=== PATIENT | female | born 1940 ===

== ENCOUNTER 2025-02-07 21:27 | Inpatient (IN) | payer MEDICARE, BC, SELFPAY ==
[2025-02-07 21:34] VITALS: BP 177/71
[2025-02-07 21:36] VITALS: BP 178/75
[2025-02-07 21:38] VITALS: BMI 35.2
--- NOTE | 2025-02-07 21:49 | HPS.HSE ---
Family Physician
-
Family Physician: INTERVIEWE UNKNOWN - PT NOT
Chief Complaint
-
Chest pain, transfer from [facility] for revascularization
History of Present Illness
This is a 83-year-old female with past medical history of hypertension, hyperlipidemia, hyw-yylkqqd-imdxumlma diabetes, GERD, history of lumbar stenosis who presented to outside hospital on 6 2:17 days of repeated nonexertional left-sided chest pain.
Patient reported that she awoke around 02/04 as well as 02/05 with similar symptoms of nonexertional left-sided chest pain radiating to her axilla with associated nausea vomiting and diaphoresis lasting for about 45 minutes and then resolving. She
has not had any additional chest discomfort since then. She presented to the outside hospital and had nonischemic ECG, had slightly elevated troponin to 37, with 32 on repeat. D-dimer was negative. BNP was also negative. CBC was unremarkable and
electrolytes did show mild CECILE with a creatinine of 1.21. Chest x-ray was clear.
She was admitted for acute coronary syndrome. Monitored on telemetry without events. She ultimately had an echocardiogram which showed EF of 60% with grade 1 diastolic dysfunction and mildly dilated LA and no significant valvular disease. She
underwent coronary angiography yesterday which demonstrated significant proximal and mid junction and mid LAD lesion with IFR of 0.75 as well as significant ostial and proximal D1 lesion with a D2 that was atretic. There was significant OM1 lesion,
significant proximal and distal RCA lesions and moderate to severe PDA lesions and a normal LVEDP.
Given multivessel disease the patient was recommended to be evaluated for CABG at [facility]. Patient was accepted by Dr. Welch.
On my evaluation of the patient she denies having any current chest pain. Since she has been in the hospital she denies any exertional chest pain or exertional shortness of breath. She denies any prior history of CAD.
Most recent vitals prior to transfer were stable on her current medications.
Medical History
Past Medical History
Past Medical History: Reports GERD, HTN, Hypercholesterolemia, NIDDM and Other (ANDREIA not on supplemental oxygen or CPAP)
Past Surgical History: Reports Gynocological (Hysterectomy), Orthopedic (Left total knee arthroplasty, recent lumbar spinal surgery) and Other (Left breast cyst removal)
Social History
Tobacco: Non-smoker
Alcohol: None
Drug: None
Personal: Single
Living: With Family
Employment: Retired
Family History
Family History: Not pertinent
Allergies / Home Medications
Allergies reflects when Allergies were last updated in [facility].
Allergies to penicillin, sulfa
Home Medications with original date entered in [facility]
Allergy/Medication List:
Allergies: Penicillin, sulfa, sulfonamide antibiotics
Current medications
Allopurinol 200 mg tablets, 1 tablets oral daily
Aspirin 81 mg tablet, 81 mg tablet oral daily
Atorvastatin 40 mg tablet, 80 mg oral at bedtime
Carvedilol 0.125 mg tablet, 3.125 mg orally every 12 hours
Losartan 100 mg tablet, 100 mg p.o. daily
Nifedipine 60 mg extended release tablets, 60 mg p.o. at bedtime
Pregabalin 50 mg capsule, 50 mg p.o. daily semaglutide 1 mg / 0.75 mL pen injector, 1 mg subcutaneous every Tuesday
Review of Systems
-
Constitutional: Reports No Symptoms
EENT: Reports No Symptoms
Respiratory: Reports No Symptoms
Cardiac: Reports No Symptoms
Abdomen/GI: Reports No Symptoms
: Reports No Symptoms
Musculoskeletal: Reports No Symptoms
Skin: Reports No Symptoms
Neurological: Reports No Symptoms
Endocrine: Reports No Symptoms
Hematologic/Lymphatic: Reports No Symptoms
Psych: Reports No Symptoms
Physical Exam
Vital Signs
Vital Signs
Temp Pulse Resp BP Pulse Ox
98.4 F 69 18 177/71 97
02/07/25 21:36 02/07/25 21:34 02/07/25 21:36 02/07/25 21:34 02/07/25 21:36
Physical Exam
General: Well Developed, Well Nourished and No Apparent Distress
HEENT: NormoCephalic, Moist mucous membranes and Atraumatic
Respiratory: Clear
Cardiac: S1/S2 and Regular Rhythm; No Murmur or Rub
GI: Soft, Non Tender, Non Distended and Normal Bowel Sounds; No Organomegaly
Rectal: Deferred by Provider
Musculoskeletal: No Clubbing, No Cyanosis and No Edema
Skin: No Rash
Neuro: Nonfocal/grossly intact
Laboratory Results
-
Reviewed
Data Reviewed
-
Diagnostic Radiology: Report Reviewed by me
Medical Tests (Nuc Med, Echo, EKG etc): Report Reviewed by me
Lab Data: Labs Reviewed by me
Old Records: Reviewed
Impression/Plan
-
IMPRESSION:
84-year-old with past medical history significant for hypertension, hyperlipidemia, nqw-lvlerlp-znuejgxfi diabetes who presented to outside hospital with recurrent nonexertional chest pain found to have ACS with slight troponin bump and nonischemic
ECG. She is status post cath showing significant multivessel disease for which she did not get stented. She is being admitted from outside hospital to [place] for evaluation for CABG. She is currently hemodynamically stable and denies having
any pain.
PLAN:
Coronary disease -multivessel disease currently on medical management. She is pending evaluation by CT surgery for CABG
-Admitted to IVU
-Low-cholesterol/diabetic diet for now
-Will continue medical management with aspirin 81 mg, atorvastatin 80 mg at bedtime
-Coreg 3.125 mg twice daily,
-nitroglycerin as needed chest pain
-Cardiology consult
Bet-xzdasqn-xwywxvfys diabetes
-Insulin sliding scale for now
-Glipizide and metformin on hold
Hypertension
-Continue Coreg 3.125, titrate as BP tolerates
� Continue losartan 100 mg tablet
� Continue nifedipine 60 mg
� Patient's home triamterene�hydrochlorothiazide on hold due to recent CECILE
DVT prophylaxis�heparin subcu
CODE STATUS�full code
[2025-02-07 22:17] VITALS: BP 162/66
[2025-02-07 23:03] LABS: Glucose - Point of Care 99 mg/dl (70-99)
--- NOTE | 2025-02-07 23:14 | PTCARENOTE ---
Received patient from EMS transport. SR on the monitor, HR in the 70s. Alert and oriented. 97% on RA. Admission assessment completed. Oriented pt to room and unit. No complaints from pt at this time, call dey within reach.
[2025-02-07] MEDS: HEPARIN 5000 UNITS SC (23:23)
[2025-02-07 23:29] VITALS: BP 153/63
[2025-02-08] VITALS (8 sets, daily range): BP systolic 138–170; BP diastolic 51–76; BMI 34.7
--- NOTE | 2025-02-08 00:19 | CONSULT.CT ---
Consultation
-
Date/Time Consultation Requested: 02/07/25
Date/Time Consultation Performed: 02/07/25, 11:30 pm
Requesting Provider: Dr. Manriquez
Performing Provider: Eugenia Hill PA-C for Dr. Welch
Reason for Consultation: mv-cad
Patient History
Physicians
Family Physician: Dr. Vannessa Dickerson
Outpatient Powerhouse Mechanic: Dr Putnam (new pt)
Inpatient Powerhouse Mechanic: [facility] Cardiology
History of Present Illness
Ms Faith is a very pleasant 84 yo female with hx HTN, HLD, DM II, non-smoker, GERD, OA, polyneuropathy, lumbar stenosis with surgery last month who presented to [facility] on 02/05/25 with complaints of CP, nausea, vomiting, and diaphoresis. Pt woke up at
5:30 am on 02/04 with left-sided CP radiating to her axilla with associated nausea, vomiting, and diaphoresis. Her symptoms resolved on their own after approx. 45 minutes. She was able to go to her physical therapy session later that morning and
had no CP or HASKINS. The next morning 02/05, she again woke up with the same sxs of CP, nausea, vomiting x2, diaphoresis and present to [facility] ED. She denies having any exertional sxs of CP or SOB prior to these episodes. Her troponin was 37, then 32. Her
BNP was 62 and D-dimer was 0.38. Her Hg was 11.2, plat 406, BUN 24, Creatinine 1.21 (improved to 0.9 on 02/07), glucose 131, TSH 1.79. CXR revealed mild pulmonary vascular congestion with no gutierrez pulmonary edema, no evidence of pneumonia, but an
enlarged cardiac silhouette. Echo revealed EF 60% with grade 1 diastolic dysfunction, mildly dilated LA and no significant valvular disease. She underwent coronary angiography which demonstrated significant proximal and mid junction and mid LAD
lesion which were physiologically significant with IFR of 0.75, as well as, significant ostial and proximal D1 lesion with a D2 that was atretic. There was a significant OM1 lesion, significant proximal and distal RCA lesions and mod-severe PDA
lesions and a normal LVEDP. Pt was transferred to on 02/07/25 for evaluation for CABG.
Currently, she is comfortable, in no distress and denies having any CP since 02/05/25. She is on no drips.
Past Medical History
Past Medical History: GERD, HTN, Hypercholesterolemia and NIDDM
-Grave's disease at age 41, treated with PTU, then Synthroid briefly, no surgery, no further tx since
-Hernia
-Gout
-Polyneuropathy
-OA
Past Surgical History
-Lumbar stenosis with recent surgery, undergoing PT currently
-L breast cyst removed
-Total hysterectomy for fibroids/bleeding
-L TKR
Family History
Mother: N/A
Father: N/A
Social History
Alcohol: None
Drug: None
Tobacco: Non-Smoker
Personal: Single
Living: With Family (with daughter Venita Mendoza and son-in-law)
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
Allergies
Allergy/AdvReac Type Severity Reaction Status Date / Time
Penicillins Allergy Unknown Verified 02/07/25 22:11
Sulfa (Sulfonamide Allergy Unknown Verified 02/07/25 22:11
Antibiotics)
GI sxs of nausea, vomiting with Sulfa
Rash with PCN
Home Medications
�Medication �Instructions �Recorded �Confirmed �Type
allopurinol 300 mg tablet 300 mg PO DAILY 02/07/25 02/07/25 History
cholecalciferol (vitamin D3) 50 50 mcg PO DAILY 02/07/25 02/07/25 History
mcg (2,000 unit) tablet
glipizide 10 mg tablet 10 mg PO BID 02/07/25 02/07/25 History
ibuprofen 800 mg tablet 800 mg PO Q8H PRN pain 02/07/25 02/07/25 History
losartan 100 mg tablet (Cozaar) 100 mg PO DAILY 02/07/25 02/07/25 History
metoprolol succinate 50 mg 50 mg PO DAILY 02/07/25 02/07/25 History
tablet,extended release 24 hr
nifedipine 60 mg tablet,extended 60 mg PO 1XD 02/07/25 02/07/25 History
release 24 hr (Procardia XL)
pregabalin 50 mg capsule 50 mg PO DAILY 02/07/25 02/07/25 History
semaglutide 1 mg/dose (2 mg/1.5 1 mg SC QWEEK 02/07/25 02/07/25 History
mL) subcutaneous pen injector
Review of Systems
-
History Source: Patient and Transfer Record
General: Reports No Symptoms
HEENT: Reports No Symptoms
Respiratory: Reports No Symptoms
Cardiac: Reports Chest Pain, Nausea, Vomiting and Diaphoresis
Abdomen/GI: Reports Reflux and Constipation
: Reports No Symptoms
Musculoskeletal: Reports Joint Pain
Skin: Reports No Symptoms
Neurological: Reports No Symptoms
Vascular: Reports No Symptoms
Physical Exam
Vital Signs
Temp 97.8 F 02/07/25 23:29
Temp route: Oral 02/07/25 23:29
Pulse 69 02/07/25 21:34
Rhythm: Normal sinus rhythm 02/07/25 22:00
Resp Rate 18 02/07/25 23:29
Blood pressure 177/71 02/07/25 21:34
Blood pressure extremity used: Right upper arm 02/07/25 23:29
Position: Lying 02/07/25 23:29
MAP (cuff-Antoinette Monitor) 100 02/07/25 21:34
SaO2 97 02/07/25 23:29
Oxygen Mode of Delivery Room air 02/07/25 23:29
Actual Weight 205 lb 0.478 oz 02/07/25 21:38
Body Mass Index (BMI) 35.2 02/07/25 21:38
Exam
General: Well Developed, Well Nourished, No Apparent Distress and Comfortable
HEENT: Moist Mucous Membranes and PERRLA
Respiratory: Clear
Cardiac: S1/S2 (no murmur, rub or gallop)
GI: Soft, Non Tender, Non Distended and Normal Bowel Sounds
Skin: Warm and Dry
Neuro: Awake and AO x 3
Extremities: Other (no edema b/l. 1+ DPs b/l. Feeling of paresthesia in R foot from polyneuropathy. Has intact feeling in both feet)
Psych: Calm
Assessment / Plan
-
Impression:
-84 yo female with slightly elevated troponin 37/ ACS admitted to [facility] on 02/05/25
-cath 02/06/25 at [facility] with mv-CAD
LM: luminal irregularities entire vessel
LAD: prox and mid junction with 40% stenosis, 50% stenosis, and 70% stenosis. The mid showed 75% and distal 40% stenosis. IFR was 0.75
D1: ostial and prox showed 75% and 80% stenosis
D2: atretic vessel, ostial 70%, mid 80%
Circ: mid and distal 30%
OM1: prox 80% stensos
OM2: normal
RCA: prox 75% and 80% stenosis, mid 30% and 20% stenosis. The distal with 75% and 80% stenosis
PDA: Prox 30%, mid 60% and 70% stenosis
RPL: luminal irreg
-Echo 02/06/25 at [facility] with nl LV and RV fxn, LVEF 60%, grade 1 diastolic dysfunction, no significant valvular dz
-HTN/HLD
-DM II
-Lumbar stenosis with surgery last month
-GERD
-Remote hx of Graves dz at age 41, tx with PTU
-Gout
-Polyneuropathy
Plan:
-pt is currently comfortable and denies having any CP since 02/05/25. She is on ASA, Lipitor, Cozaar, Coreg, and Nifedipine
-unfortunately, there are no CDs of either Cath or Echo available in her transfer records
-will initiate pre-op studies
-will need to hold Cozaar and Nifefipine 2 days prior to CABG
-will review findings with the attending physician. Further recommendations will be after his evaluation
Data Reviewed
-
EKG: Report Reviewed by me
Automobile Service Station Mechanic: Report Reviewed by me
Echo: Report Reviewed by me
Radiology: Report Reviewed by me
Medical Tests (Nuc Med, etc): Report Reviewed by me
Labs: Labs Reviewed by me
Old Records: Reviewed
[2025-02-08 02:44] LABS: Hematocrit 30.9 % (37.0-47.0); Hemoglobin 10.3 g/dL (12.0-16.0); Mean Corp Hgb Conc. 33.3 g/dL (33.0-37.0); Mean Corpuscular Hgb 31.3 pg (27.0-31.0); Mean Corpuscular Volume 93.9 fL (81.0-99.0); Mean Platelet Volume 8.9 fL (7.4-10.4); Platelet Count 318 10^3/uL (130-400); Red Blood Cell Count 3.29 10^6/uL (4.20-5.40); White Blood Cell Count 7.6 10^3/uL (4.8-10.8)
[2025-02-08 02:55] LABS: INR 1.01; PT 13.6 Sec (11.4-14.6)
[2025-02-08 02:56] LABS: APTT 34.4 Sec (23.4-35.0)
[2025-02-08 03:09] LABS: ALT (SGPT) 13 U/L (0-35); AST (SGOT) 20 U/L (14-36); Albumin 3.9 g/dl (3.5-5.0); Alkaline Phosphatase 86 U/L (38-126); Blood Urea Nitrogen 15 mg/dl (7-17); Calcium 9.8 mg/dl (8.4-10.2); Carbon Dioxide 22 mmol/L (22-30); Chloride 110 mmol/L (98-107); Estimated Creatinine Clearance 52 ml/min; Glucose 99 mg/dl (70-99); HDL Cholesterol 43 mg/dl; LDL Cholesterol, Calculated 157 mg/dl; Potassium 4.2 mmol/L (3.5-5.1); Sodium 140 mmol/L (135-145); Total Bilirubin 0.8 mg/dl (0.2-1.3); Total Cholesterol 249 mg/dl (50-199); Total Protein 6.8 g/dl (6.3-8.2); Triglyceride 248 mg/dl (10-149); Very Low Density Lipoprotein 49 mg/dl (0-30); eGFR > 60.00
[2025-02-08 03:19] LABS: Troponin I 0.089 ng/ml
[2025-02-08 07:19] LABS: Glucose - Point of Care 100 mg/dl (70-99)
[2025-02-08] MEDS: LYRICA 50 MG PO (08:18)
[2025-02-08] MEDS: NOVOLOG FLEXPEN-LOW RESISTANCE SC ×2 (08:18→12:34)
[2025-02-08] MEDS: ZYLOPRIM 300 MG PO (08:19)
[2025-02-08] MEDS: COREG 3.125 MG PO ×2 (08:19→19:38)
[2025-02-08] MEDS: COZAAR 100 MG PO (08:19)
[2025-02-08] MEDS: LOW STRENGTH ASPIRIN 81 MG PO (08:19)
[2025-02-08] MEDS: HEPARIN 5000 UNITS SC (08:20)
[2025-02-08 09:05] LABS: Glycohemoglobin (HgbA1c) 5.5 % (4.0-5.6)
--- NOTE | 2025-02-08 09:18 | W.PN.UPDATE ---
Update Note
Progress Note Update
Patient will be started on heparin gtt after discussion with cardiology. Continue ongoing work up. Consent to be obtained. Tentative surgical date to be Thursday February 13, 2025.
[2025-02-08] MEDS: HEPARIN 25000 UNITS/250 ML IV (09:38)
--- NOTE | 2025-02-08 09:44 | CON.CAR ---
Addendum entered and electronically signed by Reuben Medel MD 02/08/25 15:19:
I saw and examined the patient.
The TRANSCRIBING MACHINE MECHANIC's note was reviewed and I agree with the note.
Comment: 84 yo female with HTN, HLD, NIDDM, GERD, OA and lumbar stenosis, who presented to [facility] 02/05/25 with chest pain, nausea, vomiting and diaphoresis. Her troponin was 37 and she underwent cardiac cath which showed multi-vessel CAD and
transferred here.
She is currently CP free and has no SOB. SHe is tentatively scheduled for Tuesday CABG.
Original Note:
Consultation
Consultation Request
Date/Time Consultation Requested: 02/07/25 10p
Date/Time Consultation Performed: 02/08/25 9:15a
Requesting Provider: Dr. Manriquez
Performing Provider: JIM Esposito for Dr. Medel
Reason for Consultation: CAD awaiting CABG
Medical History
-
Chief Complaint: chest pain
History of Present Illness:
Mrs. Faith is a n 84 yo female with HTN, HLD, NIDDM, GERD, OA and lumbar stenosis, who presented to [facility] 02/05/25 with chest pain, nausea, vomiting and diaphoresis. Her troponin was 37 and she underwent cardiac cath that showed significant proximal,
mid junction and mid LAD lesion which were physiologically significant with IFR of 0.75, also significant ostial and proximal D1 lesion with a D2 that was atretic. There was a significant OM1 lesion, significant proximal and distal RCA lesions and
mod-severe PDA lesions and a normal LVEDP. Therefore she was transferred to on 02/07/25 for evaluation for CABG. Her echo 02/05/25 revealed EF 60% with grade 1 diastolic dysfunction, mildly dilated LA and no significant valvular disease. She was
seen by CT surgery and is awaiting CABG. Currently she denies any cardiac symptoms.
Past Medical History
Past Medical History: Other (as above)
Past Surgical History: Gynecological (hysterectomy) and Orthopedic (left TKA, lumbar stenosis surgery last month)
Social History
Tobacco: Non-Smoker
Alcohol: None
Living: With Family
Employment: Retired
Family History
Family History: Reviewed & Not Pertinent
Allergies / Home Medications
Allergy/AdvReac Type Severity Reaction Status Date / Time
Penicillins Allergy Unknown Verified 02/07/25 22:11
Sulfa (Sulfonamide Allergy Unknown Verified 02/07/25 22:11
Antibiotics)
�Medication �Instructions �Recorded �Confirmed �Type
allopurinol 300 mg tablet 300 mg PO DAILY 02/07/25 02/07/25 History
cholecalciferol (vitamin D3) 50 50 mcg PO DAILY 02/07/25 02/07/25 History
mcg (2,000 unit) tablet
glipizide 10 mg tablet 10 mg PO BID 02/07/25 02/07/25 History
ibuprofen 800 mg tablet 800 mg PO Q8H PRN pain 02/07/25 02/07/25 History
losartan 100 mg tablet (Cozaar) 100 mg PO DAILY 02/07/25 02/07/25 History
metoprolol succinate 50 mg 50 mg PO DAILY 02/07/25 02/07/25 History
tablet,extended release 24 hr
nifedipine 60 mg tablet,extended 60 mg PO 1XD 02/07/25 02/07/25 History
release 24 hr (Procardia XL)
pregabalin 50 mg capsule 50 mg PO DAILY 02/07/25 02/07/25 History
semaglutide 1 mg/dose (2 mg/1.5 1 mg SC QWEEK 02/07/25 02/07/25 History
mL) subcutaneous pen injector
Review of Systems
-
History Source: Patient
All other systems: Negative unless noted
Physical Exam
Vital Signs
Temp Pulse Resp BP Pulse Ox
98 F 80 20 170/66 98
02/08/25 07:31 02/08/25 07:45 02/08/25 07:31 02/08/25 07:31 02/08/25 08:31
Lab Results
02/08/25 09:17
02/08/25 02:21
Troponin I 0.089 ng/ml H* 02/08/25 02:21
Physical Exam
General: Well Developed, Well Nourished and No Apparent Distress
HEENT: Normocephalic, Anicteric and Moist Mucous Membranes
Respiratory: Clear and Non Labored Respirations
Cardiac: S1/S2 and Regular Rhythm
Breast: Deferred by me
GI: Soft, Non Tender, Non Distended and Normal Bowel Sounds
Rectal: Deferred by Provider
Genito-urinary: No Costovertebral Tender
Musculoskeletal: No Clubbing, No Cyanosis and No Edema
Skin: Warm and Dry
Neuro: AO x 3
Psych: Calm
Impression / Plan
-
CAD - multivessel on cath and plan for CABG likely 02/13/25.
- CT surgery following.
- IV Heparin.
- denies any cardiac symptoms.
HTN - stable on meds but will hold ARB and CCB 2 days prior to CABG.
- monitor.
HLD - now on Lipitor 80mg daily for LDL 157.
- goal LDL < 55.
NIDDM - on meds, per hospitalist.
GERD - PPI.
Data Reviewed
-
EKG: Tracing Personally Visualized and interpreted (NSR 76 bpm)
CT Scan: Report Reviewed by me (chest: minimal dependent atelectasis in the lung bases. )
Medical Tests (Nuc Med, Echo etc): Report Reviewed by me (echo 02/05/25: EF 60% with grade 1 diastolic dysfunction, mildly dilated LA and no significant valvular disease.)
Labs: Labs Reviewed by me
Old Records: Reviewed
--- NOTE | 2025-02-08 10:13 | W.PN.HOSP.TC ---
Today's Communication/Plan
-
Pain control. Plan for CABG
Assessment / Plan
Assessment / Plan
Physical exam:
General: Acutely ill
HEENT: Normocephalic, Atraumatic and Moist Mucous Membranes
Respiratory: Clear to Auscultation; Negative Wheezes, Rales or Rhonchi
Cardiac: Regular Rhythm and S1/S2
GI: Soft, Nontender and Nondistended
Musculoskeletal: No Clubbing, No Cyanosis and No Edema
Neuro: Awake, Alert and Oriented, no neurological deficit
Psych: Calm
A/P:
Coronary disease -multivessel disease currently on medical management. She is pending evaluation by CT surgery for CABG
-Admitted to IVU
-Low-cholesterol/diabetic diet for now
-Will continue medical management with aspirin 81 mg, atorvastatin 80 mg at bedtime
-Coreg 3.125 mg twice daily,
-nitroglycerin as needed chest pain
-Cardiology consult
- Heparin drip
- Plan for CABG on 02/13
- Updated daughter at bedside today
Ocx-vrmsiyl-eoqlhyupt diabetes
-Insulin sliding scale for now
-Glipizide and metformin on hold
Hypertension
-Continue Coreg 3.125, titrate as BP tolerates
� Continue losartan 100 mg tablet
� Continue nifedipine 60 mg
� Patient's home triamterene�hydrochlorothiazide on hold due to recent CECILE
Acute on chronic back pain
Discussed different options for treatment patient decided on the one below
Start tramadol as needed
DVT prophylaxis�heparin subcu
CODE STATUS�full code
Time spent 50-minute
Anticipated Discharge: > 48 hours
Subjective/Interval History
-
Date of Service: February 08, 2025
Patient denies chest pain today. Patient does have back pain
Objective Data
-
Labs:
Laboratory Results
0602/08/25 02/08/25
02:21 09:17 15:40
WBC 7.6 Cancelled
Hgb 10.3 L Cancelled
Hct 30.9 L Cancelled
Plt Count 318 Cancelled
PT 13.6
INR 1.01
APTT 34.4 Cancelled Pending
Sodium 140
Potassium 4.2
Chloride 110 H
Carbon Dioxide 22
BUN 15
Creatinine 0.9
Glucose 99
Calcium 9.8
Total Bilirubin 0.8
AST 20
ALT 13
Alkaline Phosphatase 86
Vital Signs:
Vital Signs
Temp Pulse Resp BP Pulse Ox
98 F 80 20 170/66 98
02/08/25 07:31 02/08/25 07:45 02/08/25 07:31 02/08/25 07:31 02/08/25 08:31
I&O
02/07/25 02/08/25 02/09/25
06:59 06:59 06:59
Intake Total 250 / 250
Output Total
Balance 249 / 249
--- NOTE | 2025-02-08 11:37 | CM ---
Reviewed chart. Met with Mrs. Faith and her daughter to review discharge plans. She states prior to admission she resides with her daughter and son-in-law in a one story home with five steps to enter. She states prior to admission she was
independent with ambulation and adls. She states she does not have any DME in the home. She states she has a prescription plan. Her daughter states she will be home for the summer to assist in her care if needed. Will need to see her functional
level after surgery to see if she will have any skilled care needs. Medical work-up in progress. The discharge plan is to return home with her daughter when medically stable.
[2025-02-08 12:30] LABS: Glucose - Point of Care 133 mg/dl (70-99)
[2025-02-08] MEDS: ULTRAM 50 MG PO ×2 (12:35→22:11)
[2025-02-08] MEDS: SENOKOT 8.6 MG PO (12:36)
[2025-02-08] MEDS: MIRALAX 17 GRAMS PO (12:36)
[2025-02-08 17:14] LABS: Glucose - Point of Care 164 mg/dl (70-99)
[2025-02-08] MEDS: LIPITOR 80 MG PO (17:49)
[2025-02-08] MEDS: NOVOLOG FLEXPEN-LOW RESISTANCE 1 UNITS SC (18:27)
--- NOTE | 2025-02-08 19:13 | PTCARENOTE ---
Pt denied any chest discomfort but reported low back discomfort which resolved well with tramadol. Pt started on heparin infusion. Pt OOB independently in her room and up in chair. Pt very motivated to look after her health, practicing her IS.
Telemetry shows sinus rhythm.
[2025-02-08] MEDS: SENOKOT PO (19:39)
[2025-02-08 21:59] LABS: Glucose - Point of Care 137 mg/dl (70-99)
[2025-02-08] MEDS: PROCARDIA XL (EXTENDED RELEASE) 60 MG PO (22:11)
[2025-02-08 22:51] LABS: APTT 142.1 Sec (23.4-35.0)
--- NOTE | 2025-02-09 00:46 | PTCARENOTE ---
Pt. has no complaints of chest pain/discomfort. VSS, NSR on the monitor. Heparin gtt infusing at 800 unit/hr. Ambulates with assist x 1. Tramadol effective for chronic lower back pain. Pt. sleeping.
[2025-02-09 04:21] VITALS: BP 119/56
[2025-02-09] MEDS: LYRICA 50 MG PO (04:36)
[2025-02-09 05:18] LABS: Hematocrit 29.9 % (37.0-47.0); Mean Corp Hgb Conc. 33.4 g/dL (33.0-37.0); Mean Corpuscular Hgb 31.7 pg (27.0-31.0); Mean Corpuscular Volume 94.9 fL (81.0-99.0); Mean Platelet Volume 9.1 fL (7.4-10.4); Platelet Count 309 10^3/uL (130-400); Red Blood Cell Count 3.15 10^6/uL (4.20-5.40); Red Cell Dist. Width 12.6 % (11.5-14.5); White Blood Cell Count 9.8 10^3/uL (4.8-10.8)
[2025-02-09 05:26] LABS: INR 1.05
[2025-02-09 05:28] LABS: APTT 83.2 Sec (23.4-35.0)
[2025-02-09 05:44] LABS: ALT (SGPT) 14 U/L (0-35); AST (SGOT) 22 U/L (14-36); Albumin 3.7 g/dl (3.5-5.0); Alkaline Phosphatase 78 U/L (38-126); Blood Urea Nitrogen 18 mg/dl (7-17); Calcium 9.5 mg/dl (8.4-10.2); Carbon Dioxide 23 mmol/L (22-30); Chloride 107 mmol/L (98-107); Direct Bilirubin 0.3 mg/dl (0.0-0.4); Estimated Creatinine Clearance 52 ml/min; Glucose 130 mg/dl (70-99); Potassium 4.2 mmol/L (3.5-5.1); Sodium 136 mmol/L (135-145); Total Bilirubin 0.7 mg/dl (0.2-1.3); Total Protein 6.6 g/dl (6.3-8.2); eGFR > 60.00
[2025-02-09 07:39] VITALS: BP 125/70
[2025-02-09 07:44] VITALS: BMI 35.0
[2025-02-09 07:45] LABS: Glucose - Point of Care 148 mg/dl (70-99)
[2025-02-09] MEDS: NOVOLOG FLEXPEN-LOW RESISTANCE SC ×3 (07:59→18:22)
--- NOTE | 2025-02-09 08:05 | PTCARENOTE ---
Assumed care of pt from prev nsg shift; Pt AAOX3 w/no c/o CP or SOB. Pt does c/o 02/28 bilat low back pain R side> L. Pain is chronic for pt. Pt assisted w/repositioning for comfort & PRN pain administered as ordered. Pt's VSS w//HR in the 70's & BP
119/56 this AM. Pt is SR on telemetry monitoring. Pt w/IV Heparin infusing through patent IV line as ordered. Pt assisted to the BR & then OOB to for breakfast. Pt w/call dey within reach. Plan of care ongoing.
[2025-02-09] MEDS: MIRALAX 17 GRAMS PO (09:16)
[2025-02-09] MEDS: SENOKOT 8.6 MG PO ×2 (09:17→20:23)
[2025-02-09] MEDS: LOW STRENGTH ASPIRIN 81 MG PO (09:17)
[2025-02-09] MEDS: COREG 3.125 MG PO (09:17)
[2025-02-09] MEDS: ZYLOPRIM 300 MG PO (09:18)
[2025-02-09] MEDS: COZAAR 100 MG PO (09:18)
[2025-02-09] MEDS: ULTRAM 50 MG PO ×2 (09:26→19:59)
--- NOTE | 2025-02-09 10:05 | W.PN.HOSP.TC ---
Today's Communication/Plan
-
ACS protocol
Assessment / Plan
Assessment / Plan
Physical exam:
General: Acutely ill
HEENT: Normocephalic, Atraumatic and Moist Mucous Membranes
Respiratory: Clear to Auscultation; Negative Wheezes, Rales or Rhonchi
Cardiac: Regular Rhythm and S1/S2
GI: Soft, Nontender and Nondistended
Musculoskeletal: No Clubbing, No Cyanosis and No Edema
Neuro: Awake, Alert and Oriented, no neurological deficit
Psych: Calm
A/P:
Coronary disease -multivessel disease currently on medical management. She is pending evaluation by CT surgery for CABG
-Admitted to IVU
-Low-cholesterol/diabetic diet for now
-Will continue medical management with aspirin 81 mg, atorvastatin 80 mg at bedtime
-Coreg increased to 6.25 mg twice daily,
-nitroglycerin as needed chest pain
-Cardiology consult
- Heparin drip
- Plan for CABG on 02/13
- Updated daughter at bedside yesterday
Gsq-fuetfco-egfrckmab diabetes
-Insulin sliding scale for now
-Glipizide and metformin on hold
Hypertension
-Continue Coreg, titrate as BP tolerates
� Holding losartan 100 mg tablet
� Continue nifedipine 60 mg
� Patient's home triamterene�hydrochlorothiazide on hold due to recent CECILE
Acute on chronic back pain/peripheral neuropathy
Discussed different options for treatment patient decided on the one below
cont tramadol as needed
-on Lyrica
-added one time dose of baclofen
DVT prophylaxis�heparin subcu
CODE STATUS�full code
Time spent 35-minute
Anticipated Discharge: > 48 hours
Subjective/Interval History
-
Date of Service: February 09, 2025
Patient complained of muscle cramps in her legs and neuropathy. Back pain better. No chest pain or shortness of breath
Objective Data
-
Labs:
Laboratory Results
02/08/25 02/09/25 02/09/25
22:30 04:58 11:00
WBC 9.8
Hgb 10.0 L
Hct 29.9 L
Plt Count 309
PT 14.0
INR 1.05
APTT 142.1 H 83.2 H Pending
Sodium 136
Potassium 4.2
Chloride 107
Carbon Dioxide 23
BUN 18 H
Creatinine 0.9
Glucose 130 H
Calcium 9.5
Total Bilirubin 0.7
AST 22
ALT 14
Alkaline Phosphatase 78
Vital Signs:
Vital Signs
Temp Pulse Resp BP Pulse Ox
98.2 F 79 18 119/56 97
02/09/25 07:39 02/09/25 07:39 02/09/25 07:39 02/09/25 04:21 02/09/25 07:39
I&O
02/08/25 02/09/25 02/10/25
06:59 06:59 06:59
Intake Total 250 / 250 480 / 480
Output Total
Balance 249 / 249 480 / 480
[2025-02-09 11:06] VITALS: BP 146/66
--- NOTE | 2025-02-09 11:11 | W.PN.UPDATE ---
Update Note
Progress Note Update
STS RISK SCORE
Procedure Type:�Isolated CABG
Perioperative Outcome Estimate %
Operative Mortality 2.36%
Morbidity & Mortality 7.6%
Stroke 1.03%
Renal Failure 1.74%
Reoperation 1.76%
Prolonged Ventilation 4.11%
Deep Sternal Wound Infection 0.405%
Long Hospital Stay (>14 days) 5.83%
Short Hospital Stay (<6 days)* 27.7%
Clinical Summary
Planned Surgery: Isolated CABG, Urgent, First cardiovascular surgery
Demographics: 84 year old, female, 91.7kg, 163cm, BMI: 34.5 kg/m�
Lab Values: Creatinine: 0.9 mg/dL, Hematocrit: 30.9%, WBC Count: 7.6 10�/�L, Platelet Count: 072401 cells/�L
Substance Abuse: Never smoker
Risk Factors / Comorbidities: Diabetes Mellitus , Hypertension
Cardiac Status: NYHA Class III, Ejection Fraction = 60%
Coronary Artery Disease: 3 vessels diseased, Proximal LAD Stenosis >=70%, Non-ST Elevation IN, IN: 1 to 7 Days
[2025-02-09 12:16] LABS: APTT 40.7 Sec (23.4-35.0)
[2025-02-09] MEDS: HEPARIN 25000 UNITS/250 ML IV (12:53)
[2025-02-09] MEDS: LIORESAL 5 MG PO (12:54)
[2025-02-09 13:08] LABS: Glucose - Point of Care 131 mg/dl (70-99)
--- NOTE | 2025-02-09 13:45 | W.PN.CD ---
Today's Communication / Plan
-
Increase Coreg
CTS next week
Impression / Plan
-
CAD - multivessel on cath and plan for CABG likely 02/13/25.
- CT surgery following.
- IV Heparin.
- denies any cardiac symptoms.
HTN - stable on meds but will hold ARB and CCB 2 days prior to CABG.
- increased coreg to 6.25 mg bid
HLD - now on Lipitor 80mg daily for LDL 157.
- goal LDL < 55.
NIDDM - on meds, per hospitalist.
GERD - PPI.
Physical Exam
Vital Signs/Labs
Vital Signs
Temp Pulse Resp BP Pulse Ox
98.2 F 70 18 146/66 99
02/09/25 11:06 02/09/25 12:00 02/09/25 11:06 02/09/25 11:06 02/09/25 11:06
02/08/25 02/09/25 02/10/25
06:59 06:59 06:59
Actual Weight 202 lb 2.622 oz 203 lb 7.787 oz
02/09/25 04:58
02/09/25 04:58
PT 14.0 Sec (11.4-14.6) 02/09/25 04:58
INR 1.05 02/09/25 04:58
APTT 40.7 Sec (23.4-35.0) H 02/09/25 11:15
Triglycerides 248 mg/dl (10-149) H 02/08/25 02:21
LDL Cholesterol, Calc 157 mg/dl 02/08/25 02:21
VLDL Cholesterol, Calc 49 mg/dl (0-30) H 02/08/25 02:21
HDL Cholesterol 43 mg/dl 02/08/25 02:21
LAB Results
02/08/25
02:21
Troponin I 0.089 H*
Physical Exam
Constitutional: No acute distress and Comfortable
EENT: Anicteric
Cardiovascular: Rhythm & rate is regular and Pedal edema is absent
Respiratory: Respiratory effort normal and Lungs clear to auscul.
GI: Soft
Neuro/Psych: AO x 3
Data Reviewed
-
Date of Service: February 09, 2025
Medical Decision Making: Reviewed Test Results
EKG: Tracing Personally Visualized and interpreted (sr)
Labs: Labs Reviewed by me
[2025-02-09 15:20] VITALS: BP 123/56
[2025-02-09 17:41] LABS: Glucose - Point of Care 134 mg/dl (70-99)
[2025-02-09] MEDS: LIPITOR 80 MG PO (18:41)
[2025-02-09 20:03] VITALS: BP 142/67
[2025-02-09] MEDS: COREG 6.25 MG PO (20:23)
[2025-02-09 21:17] LABS: APTT 65.2 Sec (23.4-35.0)
[2025-02-09 22:09] LABS: Glucose - Point of Care 135 mg/dl (70-99)
[2025-02-09 22:33] VITALS: BP 150/80
[2025-02-09] MEDS: PROCARDIA XL (EXTENDED RELEASE) 60 MG PO (22:38)
[2025-02-09] MEDS: LYRICA 25 MG PO (23:02)
--- NOTE | 2025-02-10 01:09 | PTCARENOTE ---
Pt. has no complaints of chest pain/discomfort this shift but does complain of a lot of neuropathic discomfort in bilateral feet in addition to lower back pain. Restless, pain better with movement or when feet flat on the floor. Tramadol helped a
little but not enough; order for additional 25 mg Lyrica obtained and given with adequate relief obtained. K-pad also ordered and applied to lower back/legs per patient's request. Otherwise NSR on the monitor, heparin infusing as per order. Pt.
resting quietly.
[2025-02-10] MEDS: ULTRAM 50 MG PO ×3 (02:14→17:06)
[2025-02-10 02:18] VITALS: BP 140/88
[2025-02-10 02:26] VITALS: BMI 35.2
[2025-02-10 03:30] LABS: % Basophils 0.2 % (0-2); % Eosinophils 0.9 % (0-6); % Immature Granulocytes 0.3 % (0-0.5); % Lymphocytes 28.8 % (20.5-51.1); % Monocytes 13.7 % (1.7-9.3); % Neutrophils 56.1 % (42.2-75.2); Absolute Eosinophils 0.1 10^3/uL (0-0.7); Absolute Lymphocytes 2.6 10^3/uL (1.2-3.4); Absolute Monocytes 1.3 10^3/uL (0.1-0.6); Absolute Neutrophils 5.1 10^3/uL (1.4-6.5); Hematocrit 30.5 % (37.0-47.0); Hemoglobin 10.2 g/dL (12.0-16.0); Mean Corp Hgb Conc. 33.4 g/dL (33.0-37.0); Mean Corpuscular Hgb 31.8 pg (27.0-31.0); Nucleated Red Blood Cells % 0 %; Platelet Count 296 10^3/uL (130-400); Red Blood Cell Count 3.21 10^6/uL (4.20-5.40); Red Cell Dist. Width 12.9 % (11.5-14.5); White Blood Cell Count 9.1 10^3/uL (4.8-10.8)
[2025-02-10 03:53] LABS: APTT 89.1 Sec (23.4-35.0)
[2025-02-10 03:55] LABS: Blood Urea Nitrogen 22 mg/dl (7-17); Calcium 9.7 mg/dl (8.4-10.2); Carbon Dioxide 23 mmol/L (22-30); Chloride 105 mmol/L (98-107); Estimated Creatinine Clearance 43 ml/min; Glucose 140 mg/dl (70-99); Potassium 4.4 mmol/L (3.5-5.1); Sodium 135 mmol/L (135-145); eGFR 49.86
[2025-02-10 07:18] VITALS: BP 139/73
[2025-02-10 07:48] LABS: Glucose - Point of Care 144 mg/dl (70-99)
[2025-02-10] MEDS: ZYLOPRIM 300 MG PO (08:44)
[2025-02-10] MEDS: LOW STRENGTH ASPIRIN 81 MG PO (08:44)
[2025-02-10] MEDS: MIRALAX 17 GRAMS PO (08:45)
[2025-02-10] MEDS: SENOKOT 8.6 MG PO ×2 (08:45→19:46)
[2025-02-10] MEDS: COREG 6.25 MG PO ×2 (08:45→19:46)
[2025-02-10] MEDS: LYRICA 50 MG PO ×2 (08:48→09:36)
[2025-02-10] MEDS: NOVOLOG FLEXPEN-LOW RESISTANCE SC ×3 (09:08→18:04)
--- NOTE | 2025-02-10 09:55 | W.PN.HOSP.TC ---
Today's Communication/Plan
-
Plan for CABG
Assessment / Plan
Assessment / Plan
Physical exam:
General: Acutely ill
HEENT: Normocephalic, Atraumatic and Moist Mucous Membranes
Respiratory: Clear to Auscultation; Negative Wheezes, Rales or Rhonchi
Cardiac: Regular Rhythm and S1/S2
GI: Soft, Nontender and Nondistended
Musculoskeletal: No Clubbing, No Cyanosis and No Edema
Neuro: Awake, Alert and Oriented, no neurological deficit
Psych: Calm
A/P:
Coronary disease -multivessel coronary artery disease:
Transferred from [facility]
Continue IV heparin drip
On aspirin, beta-blockers, and statins
Appreciate cardiology and CT surgery eval
Discussed with family prior
Plan for CABG on 02/13
Peripheral neuropathy:
Continue pregabalin increased to 100 mg daily
At home she is on 50 mg daily-she has had increased in the past and sometimes has tolerated and sometimes not so we will see.
Continue tramadol as needed
Hypertension:
On carvedilol and nifedipine
Losartan on hold
Diabetes mellitus type 2:
Continue insulin sliding scale
Glipizide and metformin at home
Acute on chronic back pain:
Continue tramadol as needed
DVT prophylaxis�heparin drip
CODE STATUS�full code
Time spent 35-minutes
Anticipated Discharge: > 48 hours
Subjective/Interval History
-
Date of Service: February 10, 2025
Her main concern is leg pain from her neuropathy otherwise denies any chest pain or shortness of breath.
Objective Data
-
Labs:
Laboratory Results
02/10/25 02/10/25
03:05 09:33
WBC 9.1
Hgb 10.2 L
Hct 30.5 L
Plt Count 296
APTT 89.1 H Pending
Sodium 135
Potassium 4.4
Chloride 105
Carbon Dioxide 23
BUN 22 H
Creatinine 1.1 H
Glucose 140 H
Calcium 9.7
Vital Signs:
Vital Signs
Temp Pulse Resp BP Pulse Ox
98 F 74 20 140/88 98
02/10/25 07:18 02/10/25 02:18 02/10/25 07:18 02/10/25 02:18 02/10/25 07:18
I&O
02/09/25 02/10/25 02/11/25
06:59 06:59 06:59
Intake Total 480 / 480 960 / 960
Balance 480 / 480 960 / 960
[2025-02-10 11:21] VITALS: BP 128/58
[2025-02-10 12:46] LABS: Glucose - Point of Care 121 mg/dl (70-99)
[2025-02-10] MEDS: TYLENOL 650 MG PO ×2 (13:21→18:21)
--- NOTE | 2025-02-10 13:55 | W.PN.CD ---
Today's Communication / Plan
-
Heparin gtt
CTS likely Tuesday
Impression / Plan
-
CAD - multivessel on cath and plan for CABG likely 02/13/25.
- CT surgery following.
- IV Heparin.
- denies any cardiac symptoms.
HTN - stable on meds but will hold ARB and CCB 2 days prior to CABG.
- increased coreg to 6.25 mg bid
HLD - now on Lipitor 80mg daily for LDL 157.
- goal LDL < 55.
NIDDM - on meds, per hospitalist.
GERD - PPI.
Subjective: Feet are bothering her
Physical Exam
Vital Signs/Labs
Vital Signs
Temp Pulse Resp BP Pulse Ox
97.9 F 77 20 128/58 95
02/10/25 11:29 02/10/25 11:21 02/10/25 11:29 02/10/25 11:21 02/10/25 11:29
02/09/25 02/10/25 02/11/25
06:59 06:59 06:59
Actual Weight 204 lb 12.951 oz
02/10/25 03:05
02/10/25 03:05
PT 14.0 Sec (11.4-14.6) 02/09/25 04:58
INR 1.05 02/09/25 04:58
APTT 107.0 Sec (23.4-35.0) H 02/10/25 09:33
Triglycerides 248 mg/dl (10-149) H 02/08/25 02:21
LDL Cholesterol, Calc 157 mg/dl 02/08/25 02:21
VLDL Cholesterol, Calc 49 mg/dl (0-30) H 02/08/25 02:21
HDL Cholesterol 43 mg/dl 02/08/25 02:21
LAB Results
02/08/25
02:21
Troponin I 0.089 H*
Physical Exam
Constitutional: No acute distress and Comfortable
EENT: Anicteric
Cardiovascular: Rhythm & rate is regular
Respiratory: Respiratory effort normal
GI: Soft
Neuro/Psych: Alert and Oriented
Data Reviewed
-
Date of Service: February 10, 2025
EKG: Tracing Personally Visualized and interpreted (sr)
Labs: Labs Reviewed by me
[2025-02-10 15:12] VITALS: BP 113/63
--- NOTE | 2025-02-10 17:00 | PTCARENOTE ---
Pt received this am c/o of severe burning bilateral foot pain. Pt taking ultram and tylenol as ordered with partial but not complete relief. Pt encouraged to ambulate which she later walked in the hallway and stated that the walking helped the pain.
[2025-02-10] MEDS: LIPITOR 80 MG PO (17:06)
[2025-02-10 17:55] LABS: Glucose - Point of Care 136 mg/dl (70-99)
[2025-02-10 19:25] VITALS: BP 139/69
[2025-02-10] MEDS: MORPHINE SULFATE 0.5 MG IV ×2 (20:17→23:14)
[2025-02-10 21:59] VITALS: BP 139/59
[2025-02-10 22:03] LABS: Glucose - Point of Care 145 mg/dl (70-99)
[2025-02-11] VITALS (7 sets, daily range): BP systolic 111–147; BP diastolic 44–73; BMI 35.0
--- NOTE | 2025-02-11 01:05 | PTCARENOTE ---
Received pt @ change of shift. AAOx3. VSS, NSR on monitor. Heparin gtt running @ 1100 units/hr through right forearm. C/o pain in feet. Informed Jammie Hinkle NP-- order placed for morphine-- given-- see OCT. Discussed plan of care for evening. Pt
verbalizes understanding. Call dey within reach.
[2025-02-11] MEDS: MORPHINE SULFATE 0.5 MG IV ×3 (03:32→19:06)
[2025-02-11 03:53] LABS: APTT 35.6 Sec (23.4-35.0)
[2025-02-11 04:13] LABS: Blood Urea Nitrogen 22 mg/dl (7-17); Calcium 9.6 mg/dl (8.4-10.2); Carbon Dioxide 20 mmol/L (22-30); Chloride 109 mmol/L (98-107); Estimated Creatinine Clearance 47 ml/min; Glucose 140 mg/dl (70-99); Potassium 4.6 mmol/L (3.5-5.1); Sodium 136 mmol/L (135-145); Uric Acid 4.5 mg/dl (2.5-6.2)
[2025-02-11 05:33] LABS: % Basophils 0.3 % (0-2); % Eosinophils 1.2 % (0-6); % Immature Granulocytes 0.3 % (0-0.5); % Lymphocytes 34.3 % (20.5-51.1); % Monocytes 15.8 % (1.7-9.3); % Neutrophils 48.1 % (42.2-75.2); Absolute Eosinophils 0.1 10^3/uL (0-0.7); Absolute Lymphocytes 2.3 10^3/uL (1.2-3.4); Absolute Neutrophils 3.2 10^3/uL (1.4-6.5); Hematocrit 29.5 % (37.0-47.0); Hemoglobin 9.7 g/dL (12.0-16.0); Mean Corp Hgb Conc. 32.9 g/dL (33.0-37.0); Mean Corpuscular Hgb 31.2 pg (27.0-31.0); Mean Corpuscular Volume 94.9 fL (81.0-99.0); Mean Platelet Volume 9.6 fL (7.4-10.4); Nucleated Red Blood Cells % 0 %; Platelet Count 286 10^3/uL (130-400); Red Blood Cell Count 3.11 10^6/uL (4.20-5.40); White Blood Cell Count 6.6 10^3/uL (4.8-10.8)
[2025-02-11 07:36] LABS: Glucose - Point of Care 137 mg/dl (70-99)
[2025-02-11] MEDS: NOVOLOG FLEXPEN-LOW RESISTANCE SC ×3 (08:25→18:12)
[2025-02-11] MEDS: LYRICA 100 MG PO (08:25)
[2025-02-11] MEDS: COREG 6.25 MG PO (08:29)
[2025-02-11] MEDS: ZYLOPRIM 300 MG PO (08:29)
[2025-02-11] MEDS: MIRALAX 17 GRAMS PO (08:30)
[2025-02-11] MEDS: LOW STRENGTH ASPIRIN 81 MG PO (08:30)
[2025-02-11] MEDS: SENOKOT 8.6 MG PO ×2 (08:30→19:48)
--- NOTE | 2025-02-11 08:38 | W.PN.CD ---
Today's Communication / Plan
-
Heparin gtt
CABG Wed
Impression / Plan
-
CAD - multivessel on cath and plan for CABG likely 02/13/25.
- CT surgery following.
- IV Heparin.
- denies any cardiac symptoms.
HTN - stable on meds but will hold ARB and CCB 2 days prior to CABG.
- increased coreg to 12.5 mg bid
HLD - now on Lipitor 80mg daily for LDL 157.
- goal LDL < 55.
NIDDM - on meds, per hospitalist.
GERD - PPI.
Subjective: feelign better
Physical Exam
Vital Signs/Labs
Vital Signs
Temp Pulse Resp BP Pulse Ox
97.7 F 87 18 147/73 98
02/11/25 07:25 02/11/25 08:29 02/11/25 07:25 02/11/25 08:29 02/11/25 07:25
02/10/25 02/11/25 02/12/25
06:59 06:59 06:59
Actual Weight 204 lb 12.951 oz 203 lb 7.787 oz
02/11/25 04:36
02/11/25 03:26
PT 14.0 Sec (11.4-14.6) 02/09/25 04:58
INR 1.05 02/09/25 04:58
APTT 35.6 Sec (23.4-35.0) H 02/11/25 03:26
Triglycerides 248 mg/dl (10-149) H 02/08/25 02:21
LDL Cholesterol, Calc 157 mg/dl 02/08/25 02:21
VLDL Cholesterol, Calc 49 mg/dl (0-30) H 02/08/25 02:21
HDL Cholesterol 43 mg/dl 02/08/25 02:21
Physical Exam
Constitutional: No acute distress and Comfortable
EENT: Anicteric
Cardiovascular: Rhythm & rate is regular
Respiratory: Respiratory effort normal
GI: Soft
Neuro/Psych: AO x 3
Data Reviewed
-
Date of Service: February 11, 2025
EKG: Tracing Personally Visualized and interpreted (sr)
Echo: Ordered by me
Labs: Labs Reviewed by me
--- NOTE | 2025-02-11 10:02 | W.PN.HOSP.TC ---
Today's Communication/Plan
-
Check iron stores and heme test stools. Follow H&H.
Assessment / Plan
Assessment / Plan
A/P:
Coronary disease -multivessel coronary artery disease:
Transferred from [facility]
Continue IV heparin drip
On aspirin, beta-blockers, and statins
Appreciate cardiology and CT surgery eval
Plan for CABG on 02/13
Normocytic anemia
History of chronic anemia per patient
Check iron stores and heme test stools.
Peripheral neuropathy:
Continue pregabalin increased to 100 mg daily
At home she is on 50 mg daily-she has had increased in the past and sometimes has tolerated and sometimes not so we will see.
Continue tramadol as needed
Hypertension:
On carvedilol and nifedipine
Losartan on hold
Diabetes mellitus type 2:
Continue insulin sliding scale
Glipizide and metformin at home and she is on Ozempic weekly. Currently her glipizide and metformin are on hold the hospital and blood sugars are under goal.
Hemoglobin A1c 5.5. Follow Accu-Cheks and consider discontinuing glipizide or decreasing the dose of glipizide .
Acute on chronic back pain:
Continue tramadol as needed
DVT prophylaxis�heparin drip
CODE STATUS�full code
Anticipated Discharge: > 48 hours
Subjective/Interval History
-
Date of Service: February 11, 2025
Denies any shortness of breath or chest pain.
No nausea vomiting.
Her main symptom is worsening of her neuropathy pain here. She has neuropathy for the last 2 years and was on Lyrica 100 mg decreased to 50 mg because of side effects. On 50 mg she was doing great but his symptoms worsened in the hospital.
Morphine helps.
She apparently was told she was anemic by PCP during routine visits. No treatments recommended. She says she is was up-to-date with colonoscopy for her age. No prior history of GI bleed or peptic ulcer disease.
Objective Data
-
Labs:
Laboratory Results
02/11/25 02/11/25 02/11/25
03:26 04:36 10:00
WBC Cancelled 6.6
Hgb Cancelled 9.7 L
Hct Cancelled 29.5 L
Plt Count Cancelled 286
APTT 35.6 H Pending
Sodium 136
Potassium 4.6
Chloride 109 H
Carbon Dioxide 20 L
BUN 22 H
Creatinine 1.0
Glucose 140 H
Calcium 9.6
Vital Signs:
Vital Signs
Temp Pulse Resp BP Pulse Ox
97.7 F 87 18 147/73 98
02/11/25 07:25 02/11/25 08:29 02/11/25 07:25 02/11/25 08:29 02/11/25 07:25
I&O
02/10/25 02/11/25 02/12/25
06:59 06:59 06:59
Intake Total 960 / 960
Balance 960 / 960
Physical Exam
-
Respiratory: Clear to Auscultation and Non Labored Respirations; Negative Accessory Resp Muscle Use
Cardiac: Regular Rhythm and S1/S2
GI: Soft and Nontender
Psych: Calm; Negative Confused
Data Reviewed
-
Labs: Labs Reviewed by me
[2025-02-11 10:08] LABS: Reticulocyte Count 2.4 % (0.4-2.8)
[2025-02-11 10:37] LABS: APTT 117.2 Sec (23.4-35.0)
[2025-02-11 11:38] LABS: Glucose - Point of Care 237 mg/dl (70-99)
[2025-02-11 13:41] LABS: Glucose - Point of Care 144 mg/dl (70-99)
[2025-02-11] MEDS: HEPARIN 25000 UNITS/250 ML IV (14:53)
[2025-02-11 18:02] LABS: Glucose - Point of Care 122 mg/dl (70-99)
[2025-02-11] MEDS: LIPITOR 80 MG PO (18:12)
[2025-02-11 18:49] LABS: Iron 46 ug/dl (37-170)
[2025-02-11 18:58] LABS: Percent Saturation 16 % (20-50); Total Iron Binding Capacity 272 ug/dl (265-497)
--- NOTE | 2025-02-11 19:25 | PTCARENOTE ---
pt continues to be sr on the monitor, hr in the 70s, vss. pt offers no complaints at this time. pt educated on plan of care and pt verbalized understanding. heparin gtt running per protocol. pt ambulating in major and tolerating well. call dey
within reach.
[2025-02-11] MEDS: COREG 12.5 MG PO (19:48)
[2025-02-11 19:55] LABS: APTT 113.9 Sec (23.4-35.0)
[2025-02-11] MEDS: DULCOLAX 10 MG PO (19:55)
--- NOTE | 2025-02-11 21:48 | PTCARENOTE ---
Assumed care on pt at 1900, aaox3, denies chest pain or SOB, c/o chronic back and LE pain, prn morphine administered with some relief. SR on the monitor, HR 80's, bp stable. Heparin gtt infusing @ 1200 unit/hour. Call edy within reach, POc ongoing.
[2025-02-11 22:18] LABS: Glucose - Point of Care 169 mg/dl (70-99)
[2025-02-12] VITALS (7 sets, daily range): BP systolic 123–138; BP diastolic 41–113; BMI 34.8
[2025-02-12 03:54] LABS: Hematocrit 29.7 % (37.0-47.0); Hemoglobin 9.4 g/dL (12.0-16.0); Mean Corp Hgb Conc. 31.6 g/dL (33.0-37.0); Mean Corpuscular Hgb 30.2 pg (27.0-31.0); Mean Corpuscular Volume 95.5 fL (81.0-99.0); Mean Platelet Volume 9.1 fL (7.4-10.4); Platelet Count 290 10^3/uL (130-400); Red Blood Cell Count 3.11 10^6/uL (4.20-5.40); Red Cell Dist. Width 12.6 % (11.5-14.5); White Blood Cell Count 6.9 10^3/uL (4.8-10.8)
[2025-02-12 04:07] LABS: APTT 114.7 Sec (23.4-35.0)
[2025-02-12 07:29] LABS: Glucose - Point of Care 143 mg/dl (70-99)
[2025-02-12] MEDS: NOVOLOG FLEXPEN-LOW RESISTANCE SC ×2 (07:37→13:00)
--- NOTE | 2025-02-12 08:00 | PTCARENOTE ---
Assumed care of pt from prev nsg shift; Pt AAOX3 w/no c/o CP or SOB. Pt w/no c/o of her chronic back pain this AM. Pt reports 'much better control w/the Lyrica and IV morphine'. Pt's VSS w//HR in the 70's & BP 126/56 this AM. Pt is SR on telemetry
monitoring. Pt w/IV Heparin infusing through patent IV line as ordered. Pt assisted to the BR & then OOB to for breakfast. Pt w/call dey within reach. Plan of care ongoing.
--- NOTE | 2025-02-12 08:05 | W.PN.UPDATE ---
Update Note
Progress Note Update
CARDIAC SURGERY ATTENDING:
It has been my pleasure to meet with Mrs. Gala Faith on numerous occasions during this hospitalization. She is a very pleasant 84-year-old woman with multivessel CAD. She will benefit from surgical coronary revascularization. I anticipate EZIO
to LAD, GSV to D, potential GSV to OM1 (this is a small coronary target), and GSV to RPDA at bifurcation to PLB branches (this is a very diseased coronary target with significant calcifications). I will perform concurrent exclusion of her left
atrial appendage. I had a long conversation with Mrs. Faith. We discussed her coronary pathology, discussed the operative procedure in great detail, reviewed the periprocedural risks (including, but not limited to, , stroke, PA, arrhythmia,
PNA, CECILE/F, bleeding, and infection), discussed expected in-hospital postprocedural course, and reviewed the expected outpatient recovery. All questions were answered to the best of my abilities. The patient is agreeable to proceed with surgery.
I have scheduled her for surgery on 02/13/2025.
Thank you for the opportunity participate in the care of this kind patient.
Brent Welch MD
[phone]
[2025-02-12] MEDS: LOW STRENGTH ASPIRIN 81 MG PO (09:22)
[2025-02-12] MEDS: LYRICA 100 MG PO (09:22)
[2025-02-12] MEDS: SENOKOT 8.6 MG PO (09:22)
[2025-02-12] MEDS: MIRALAX 17 GRAMS PO (09:22)
[2025-02-12] MEDS: ZYLOPRIM 300 MG PO (09:23)
[2025-02-12] MEDS: COREG 12.5 MG PO ×2 (09:23→20:33)
--- NOTE | 2025-02-12 09:29 | W.PN.CD ---
Today's Communication / Plan
-
- CABG tomorrow.
- Continue IV Heparin gtt.
- Continue aspirin, high-dose atorvastatin, and carvedilol.
Impression / Plan
-
Multivessel CAD CAD - multivessel on cath.
- This is a threat to life.
- CABG tomorrow.
- Continue IV Heparin gtt.
- Continue aspirin, high-dose atorvastatin, and carvedilol.
HTN -
- Continue current dose of carvedilol.
HLD - Continue Lipitor 80mg daily (LDL is 157, but goal is< 55).
NIDDM - Management as per primary team.
GERD - PPI.
Subjective: No major events overnight. No cardiac complaints this a.m.
Physical Exam
Vital Signs/Labs
Vital Signs
Temp Pulse Resp BP Pulse Ox
98.1 F 79 18 126/56 97
02/12/25 07:22 02/12/25 07:22 02/12/25 07:22 02/12/25 07:21 02/12/25 07:22
02/11/25 02/12/25 02/13/25
06:59 06:59 06:59
Actual Weight 92.3 kg 91.9 kg
02/12/25 03:41
02/11/25 03:26
PT 14.0 Sec (11.4-14.6) 02/09/25 04:58
INR 1.05 02/09/25 04:58
APTT 114.7 Sec (23.4-35.0) H 02/12/25 03:41
Triglycerides 248 mg/dl (10-149) H 02/08/25 02:21
LDL Cholesterol, Calc 157 mg/dl 02/08/25 02:21
VLDL Cholesterol, Calc 49 mg/dl (0-30) H 02/08/25 02:21
HDL Cholesterol 43 mg/dl 02/08/25 02:21
Physical Exam
Constitutional: No acute distress and Comfortable
EENT: Anicteric and Moist mucous membranes
Cardiovascular: Rhythm & rate is regular, Pedal edema is absent, Systolic murmur absent and S1S2 is normal
Respiratory: Respiratory effort normal
GI: Soft and Non tender
Neuro/Psych: AO x 3
Other: Skin (Warm, dry, intact)
Data Reviewed
-
Date of Service: February 12, 2025
EKG: Tracing Personally Visualized and interpreted (Telemetry: Sinus rhythm)
Echo: Tracing Personally Visualized and interpreted (EF 60%; no significant valvular disease.)
Medical Tests (PFT, Pathology etc): Discussed with Patient
Labs: Labs Reviewed by me
[2025-02-12 10:53] LABS: APTT 62.6 Sec (23.4-35.0)
[2025-02-12] MEDS: HEPARIN 25000 UNITS/250 ML IV (12:14)
[2025-02-12 12:58] LABS: Glucose - Point of Care 158 mg/dl (70-99)
--- NOTE | 2025-02-12 13:46 | W.PN.HOSP.TC ---
Today's Communication/Plan
-
CABG tomorrow
Assessment / Plan
Assessment / Plan
A/P:
Coronary disease -multivessel coronary artery disease:
Transferred from [facility]
Continue IV heparin drip
On aspirin, beta-blockers, and statins
Appreciate cardiology and CT surgery eval
Plan for CABG on 02/13
Normocytic anemia
History of chronic anemia per patient
Iron studies suggest no deficiency. Heme test pending.
Peripheral neuropathy:
Continue pregabalin increased to 100 mg daily
At home she is on 50 mg daily-she has had increased in the past and sometimes has tolerated and sometimes not so we will see.
Continue tramadol as needed
Hypertension:
On carvedilol and nifedipine
Losartan on hold
Diabetes mellitus type 2:
Continue insulin sliding scale
Glipizide and metformin at home and she is on Ozempic weekly. Currently her glipizide and metformin are on hold the hospital and blood sugars are under goal.
Hemoglobin A1c 5.5. Follow Accu-Cheks and consider discontinuing glipizide or decreasing the dose of glipizide .
Acute on chronic back pain:
Continue tramadol as needed
DVT prophylaxis�heparin drip
CODE STATUS�full code
Anticipated Discharge: > 48 hours
Subjective/Interval History
-
Date of Service: February 12, 2025
No new symptoms. No chest pain. No shortness of breath currently.
No nausea vomiting
Objective Data
-
Labs:
Laboratory Results
02/12/25 02/12/25 02/12/25
03:41 10:33 18:15
WBC 6.9
Hgb 9.4 L
Hct 29.7 L
Plt Count 290
APTT 114.7 H 62.6 H Pending
Vital Signs:
Vital Signs
Temp Pulse Resp BP Pulse Ox
98.4 F 78 18 132/61 94
02/12/25 12:23 02/12/25 12:26 02/12/25 12:23 02/12/25 12:26 02/12/25 12:26
I&O
02/11/25 02/12/25 02/13/25
06:59 06:59 06:59
Intake Total 1090 / 1090
Balance 1090 / 1090
Physical Exam
-
Respiratory: Non Labored Respirations; Negative Accessory Resp Muscle Use
Cardiac: Regular Rhythm and S1/S2
Neuro: AO x 3
Data Reviewed
-
Labs: Labs Reviewed by me
--- NOTE | 2025-02-12 16:02 | CM ---
spoke to pt in room, we discussed pre-op CABG teaching including sternal and driving restrictions. she is prev indep, lives with her daughter and IAN in a ranch with 5 steps to enter. she has a cane she uses when she goes out and a rollator if
needed. we discussed rehabs and said [facility] . cm explained she would need to qualify and we will follow. she ahs the cardiac educ book. plan is for CABG in am. cm role explained and all questions answered
[2025-02-12 18:06] LABS: Glucose - Point of Care 175 mg/dl (70-99)
[2025-02-12] MEDS: LIPITOR 80 MG PO (18:44)
[2025-02-12] MEDS: NOVOLOG FLEXPEN-LOW RESISTANCE 1 UNITS SC (18:44)
[2025-02-12 18:54] LABS: APTT 91.1 Sec (23.4-35.0)
[2025-02-12] MEDS: SENOKOT PO (20:36)
--- NOTE | 2025-02-12 22:03 | PTCARENOTE ---
Pt aaox3, forgetful at times, denies any c/o pain or SOB, remains on heparin gtt, infusing at 1200unit/ hour. SR on the monitor, HR 70's .Scheduled for CABG tomorrow, prep completed, patient relations director CV PA notified. Family at bedside, all questions/concerns
answered. Call dey within reach.
[2025-02-12 22:23] LABS: Glucose - Point of Care 139 mg/dl (70-99)
[2025-02-13] VITALS (15 sets, daily range): BP systolic 87–147; BP diastolic 47–98; BMI 34.2
[2025-02-13 02:10] LABS: APTT 91.3 Sec (23.4-35.0)
--- NOTE | 2025-02-13 04:39 | PTCARENOTE ---
2nd prep with CHG shower and wipes completed. Family at bedside. call dey within reach.
[2025-02-13 05:30] LABS: Glucose - Point of Care 124 mg/dl (70-99)
--- NOTE | 2025-02-13 06:11 | W.CVOR.SURPR ---
CVOR Surgeon Immed Pre Op
-
I have examined this patient prior to performance of the scheduled procedure.
The patient's condition is unchanged from the time of the dictated/written History and
Physical and the patient is able to undergo the scheduled procedure.
[2025-02-13] MEDS: MAGNESIUM OXIDE 500 MG PO (06:19)
[2025-02-13] MEDS: PROTONIX 40 MG PO (06:19)
[2025-02-13] MEDS: LOPRESSOR 25 MG PO (06:19)
[2025-02-13] MEDS: BACTROBAN 2% OINTMENT 1 APPLIC NASAL ×2 (06:19→19:48)
[2025-02-13 07:38] LABS: ACT+ - POC 156 Seconds (82-134)
[2025-02-13 07:58] LABS: Urine Albumin Negative (Neg - Trace); Urine Bilirubin Negative (Negative); Urine Character Clear (Clear); Urine Color Yellow; Urine Glucose Negative (Negative); Urine Ketone Negative (Negative); Urine Leukocyte Negative (Negative); Urine Nitrite Negative (Negative); Urine Occult Blood Negative (Negative); Urine Urobilinogen Negative (Neg - 1+)
[2025-02-13 10:00] LABS: ACT+ - POC 496 Seconds (82-134)
[2025-02-13 10:27] LABS: B.E. - POC -0.2 mmol/L; Glucose - POC 118 mg/dl (70-99); HCO3 - POC 25 mmol/L (21-28); Hematocrit - POC 30 % PCV (37-47); Hemodilution- POC No; Hemoglobin Calculated - POC 10.2; Ionized Calcium - POC 1.35 mmol/L (1.15-1.33); Lactate - POC 0.69 mmol/L (0.36-0.75); O2 Saturation %Calculated-POC 99.3 % (94-98); PCO2 - POC 43 mmHg (35-48); PO2 - POC 151 mmHg (83-108); POC Comment PRE; Potassium - POC 3.8 mmol/L (3.5-5.1); Sodium - POC 140 mmol/L (136-145); Specimen Type - POC Arterial; pH - POC 7.37 (7.35-7.45)
[2025-02-13 10:35] LABS: ACT+ - POC 539 Seconds (82-134)
--- NOTE | 2025-02-13 10:56 | CM ---
Patient in OR today for CABG.
Reviewed initial assessment. Pt. resides with dtr. and IAN in a ranch style home w/ 5 MAYRA. Pt. is indep. w/ use of a SPC and rollator as needed. Anticipate that patient may require SNF placement @ [place]. Patient prefers [facility]. Will initiate
a referral.
Will follow closely.
[2025-02-13 11:19] LABS: ACT+ - POC 463 Seconds (82-134)
--- NOTE | 2025-02-13 11:21 | CM ---
pt in OR today, cm following
[2025-02-13 11:23] LABS: B.E. - POC 2.7 mmol/L; Glucose - POC 118 mg/dl (70-99); HCO3 - POC 26 mmol/L (21-28); Hematocrit - POC 22 % PCV (37-47); Hemodilution- POC Yes; Hemoglobin Calculated - POC 7.4; Ionized Calcium - POC 1.04 mmol/L (1.15-1.33); Lactate - POC < 0.30 mmol/L (0.36-0.75); PCO2 - POC 34 mmHg (35-48); PO2 - POC 469 mmHg (83-108); POC Comment CPB; Potassium - POC 4.7 mmol/L (3.5-5.1); Sodium - POC 139 mmol/L (136-145); Specimen Type - POC Arterial; pH - POC 7.49 (7.35-7.45)
[2025-02-13 11:34] LABS: B.E. - POC 5.4 mmol/L; Glucose - POC 157 mg/dl (70-99); HCO3 - POC 28 mmol/L (21-28); Hematocrit - POC 27 % PCV (37-47); Hemodilution- POC Yes; Hemoglobin Calculated - POC 9.1; Ionized Calcium - POC 1.05 mmol/L (1.15-1.33); Lactate - POC 0.82 mmol/L (0.36-0.75); PCO2 - POC 31 mmHg (35-48); PO2 - POC 452 mmHg (83-108); POC Comment CPB; Potassium - POC 4.5 mmol/L (3.5-5.1); Sodium - POC 142 mmol/L (136-145); Specimen Type - POC Arterial; pH - POC 7.56 (7.35-7.45)
[2025-02-13 11:43] LABS: ACT+ - POC 577 Seconds (82-134)
[2025-02-13 12:12] LABS: B.E. - POC 4.2 mmol/L; Glucose - POC 155 mg/dl (70-99); HCO3 - POC 27 mmol/L (21-28); Hematocrit - POC 27 % PCV (37-47); Hemodilution- POC Yes; Hemoglobin Calculated - POC 9.2; Ionized Calcium - POC 1.11 mmol/L (1.15-1.33); Lactate - POC 0.69 mmol/L (0.36-0.75); PCO2 - POC 32 mmHg (35-48); PO2 - POC 317 mmHg (83-108); POC Comment WARM; Potassium - POC 4.1 mmol/L (3.5-5.1); Sodium - POC 143 mmol/L (136-145); Specimen Type - POC Arterial; pH - POC 7.53 (7.35-7.45)
[2025-02-13 12:21] LABS: ACT+ - POC 603 Seconds (82-134)
[2025-02-13 12:56] LABS: B.E. - POC 2.8 mmol/L; Glucose - POC 117 mg/dl (70-99); HCO3 - POC 26 mmol/L (21-28); Hematocrit - POC 28 % PCV (37-47); Hemodilution- POC Yes; Hemoglobin Calculated - POC 9.6; Ionized Calcium - POC 1.14 mmol/L (1.15-1.33); Lactate - POC 1.89 mmol/L (0.36-0.75); PCO2 - POC 32 mmHg (35-48); PO2 - POC 369 mmHg (83-108); POC Comment WARM; Potassium - POC 3.8 mmol/L (3.5-5.1); Sodium - POC 144 mmol/L (136-145); Specimen Type - POC Arterial; pH - POC 7.51 (7.35-7.45)
[2025-02-13 12:58] LABS: ACT+ - POC 123 Seconds (82-134)
[2025-02-13 13:25] LABS: B.E. - POC 0.3 mmol/L; Glucose - POC 93 mg/dl (70-99); HCO3 - POC 24 mmol/L (21-28); Hematocrit - POC 29 % PCV (37-47); Hemodilution- POC Yes; Lactate - POC 2.73 mmol/L (0.36-0.75); O2 Saturation %Calculated-POC 99.9 % (94-98); PCO2 - POC 34 mmHg (35-48); PO2 - POC 259 mmHg (83-108); POC Comment POST; Potassium - POC 3.8 mmol/L (3.5-5.1); Sodium - POC 143 mmol/L (136-145); Specimen Type - POC Arterial; pH - POC 7.46 (7.35-7.45)
--- NOTE | 2025-02-13 13:31 | W.IMMPOSTOP ---
Addendum entered and electronically signed by Brent Welch MD 02/13/25 14:58:
[id number]
Original Note:
Surgical Immed Post Op Note
-
CARDIAC SURGERY OPERATIVE REPORT:
Preoperative Dx:
MVCAD
Postoperative Dx:
Same
Procedures;
1) Median sternotomy
2) Takedown of EZIO (narrow pedicle)
3) Endoscopic harvest/prep of B/L LE GSV
4) CABG x 4 (EZIO to LAD, GSV to D1, GSV to OM1, GSV to RPDA)
5) ELAA (45mm AtriClip)
Surgeon:
Brent Welch M.D.
Assistants:
Charito Canas P.A.-C.; endoscopic harvest/prep of B/L LE GSV; first aid director throughout
Domenic Burnett P.A.-C.; assisted in prep of GSV; first aid director during cannulation for CPB
Shruthi Griffiths P.A.-C.; skin closure
Perfusion:
Keyla Johnson.C.P.; XC: 93min; CPB: 137min
Anesthesia:
Yoav Gerardo M.D. and Frank FariasN.Cesar
Findings:
EZIO was a healthy conduit w/ brisk blood flow; but with small ELD 1.5mm; healthy canseco
GSV was healthy conduit w/ normal wall thickness; but with larger ELD 4.5-6.0mm
LAD was visible on the epicardial surface, healthy canseco at midpoint anastomosis; ELD 2.75mm
D1 took a shallow intramyocardial course under approximately 1.5mm; healthy canseco at midpoint anastomosis; ELD 3.25mm
OM1 was initially visible on the epicardial surface, but then took a very shallow intramyocardial course; anastomosis performed in intramyocardial segment; ELD 1.75mm, slightly thin canseco
RPDA was visible on the epicardial surface, extensive scattered calcifications throughout, anastomosis performed just past crux; ELD 2.50mm
Good flow in all grafts on postoperative TT U/S flow probe assessment
ANDRIA w/ 'chicken-wing' morphology w/ excellent visual placement of 45mm AtriClip - confirmed excluded w/ postoperative LADARIUS
Post-LADARIUS: Normal biventricular function, no RWMA, no valvular heart disease
Transfusions:
None
Complications:
None
Implants:
AtriClip 45mm; LOT [id number]
CT x 4 (B/L pleural, inferior mediastinal, superior mediastinal)
Sternal wires x 9
Condition:
80 sinus (0.8/0.5), 125/52, CVP 10; SpO2 100%
GTTS: levophed 3, precedex 0.5, insulin OFF
Stable/guarded to CVICU
CT to pleuravac @1324 - no significant drainage
--- NOTE | 2025-02-13 13:56 | CON.INTV ---
Consultation
Consultation Request
Date/Time Consultation Requested: 02/13/2025 - 1310
Date/Time Consultation Performed: 02/13/2025 - 3
Requesting Provider: Domenic Burnett PA-C
Performing Provider: Dr. Curry
Reason for Consultation: s//p CABG x4
Medical History
-
Chief Complaint: Chest pain
History of Present Illness:
84-year-old female with a past medical history of DM type II, hyperlipidemia, hypertension, GERD and lumbar stenosis who presented with chest pain to [facility] on 02/05/2025. Patient has slightly elevated troponin and was admitted for acute coronary
syndrome. Echo showed preserved LVEF at 60% with no significant valvular disease and mildly dilated left atrium. She underwent coronary angiography which shows significant multivessel CAD. Patient transferred here to [facility] for
further evaluation. CT surgery consulted and the patient was consented for CABG. She was continued on IV heparin on the IVU. Today, patient underwent CABG x 4 with left atrial appendage exclusion with a 45 mm AtriClip. Patient transferred to the
CVICU postoperatively, and Autoc[employer] service is now consulted for additional management/recommendations.
When I saw the patient, she was resting in bed in no acute distress. Currently intubated on SIMV at 16/500/40%/5, with PSV: 5. PIP 24 cmH2O, VTe 437 cc and breathing at 22 breaths/min. Current heart rate 89, BP via A-line: 95/58, BP via NIBP:
104/69, and SpO2: 100%. Currently on Levophed at 4 mcg/min and insulin drip at 2 units/hr. The patient's granddaughter, Sarah, and the patient's daughter, Venita, both present at bedside and all questions were answered.
PMHx: Hypertension, hyperlipidemia, DM type II, GERD, lumbar stenosis, obesity
PSHx: Hysterectomy, left TKA, lumbar spinal surgery, left breast cyst removal
Past Medical History
Past Medical History: Other (Above as per HPI)
Past Surgical History: Other (Above as per HPI)
Social History
Tobacco: Non-smoker
Alcohol: None
Drug: None
Personal: Single
Living: With Family
Employment: Retired
Family History
Family History: Reviewed & Not Pertinent
Allergies / Home Medications
Allergies
Allergy/AdvReac Type Severity Reaction Status Date / Time
Penicillins Allergy Unknown Verified 02/07/25 22:11
Sulfa (Sulfonamide Allergy Unknown Verified 02/07/25 22:11
Antibiotics)
Home Medications
�Medication �Instructions �Recorded �Confirmed �Last Taken �Type
allopurinol 300 mg tablet 300 mg PO DAILY 02/07/25 02/07/25 Unknown History
cholecalciferol (vitamin D3) 50 50 mcg PO DAILY 02/07/25 02/07/25 Unknown History
mcg (2,000 unit) tablet
glipizide 10 mg tablet 10 mg PO BID 02/07/25 02/07/25 Unknown History
ibuprofen 800 mg tablet 800 mg PO Q8H PRN pain 02/07/25 02/07/25 Unknown History
losartan 100 mg tablet (Cozaar) 100 mg PO DAILY 02/07/25 02/07/25 Unknown History
metoprolol succinate 50 mg 50 mg PO DAILY 02/07/25 02/07/25 Unknown History
tablet,extended release 24 hr
nifedipine 60 mg tablet,extended 60 mg PO 1XD 02/07/25 02/07/25 Unknown History
release 24 hr (Procardia XL)
pregabalin 50 mg capsule 50 mg PO DAILY 02/07/25 02/07/25 Unknown History
semaglutide 1 mg/dose (2 mg/1.5 1 mg SC QWEEK 02/07/25 02/07/25 02/03/25 History
mL) subcutaneous pen injector
Review of Systems
-
Unable to Obtain full review of systems at this time due to: Patient Intubation
Vitals / Labs / Diagnostic Testing
Vital Signs
Temp Pulse Resp BP Pulse Ox
99.2 F 93 16 99/73 100
02/13/25 19:00 02/13/25 19:00 02/13/25 19:00 02/13/25 18:00 02/13/25 19:00
Lab Data
02/13/25 17:27
02/13/25 13:59
Laboratory Results
02/13/25 02/13/25 02/13/25
01:16 13:59 18:06
PT 18.0 H
INR 1.44
APTT 91.3 H 35.1 H
pH 7.46 H 7.46 H
pCO2 31 L 32
pO2 120 H 172 H
HCO3 22.0 22.8
O2 Delivery Level Not Reportable Not Reportable
Diagnostic Testing:
Physical Exam
-
HEENT: Normocephalic, Anicteric and Other (ETT in place)
Cardiovascular: S1/S2 and Peripheral Edema (negative)
Respiratory: Wheeze (negative), Rales (negative), Rhonchi (negative), Non-Labored Respirations, Other (Mechanical breath sounds heard bilaterally) and Other (Mediastinal chest tubes x 2 + bilateral pleural chest tube)
GI: Soft, Distended (Abdominal obesity), Non Tender and Normal Bowel Sounds
Neurology: Tremors (negative) and Other (Sedated)
Skin: Warm and Dry
General: Respiratory Distress (negative), Comfortable, Fever (negative) and Chills (negative)
Assessment
-
Assessment: 84-year-old AAF with a past medical history of DM type II, hyperlipidemia, hypertension, GERD and lumbar stenosis who presented with chest pain to [facility] on 02/05/2025. Patient has slightly elevated troponin and was admitted for acute
coronary syndrome. Echo showed preserved LVEF at 60% with no significant valvular disease and mildly dilated left atrium. She underwent coronary angiography which shows significant multivessel CAD. Patient transferred here to [facility]
for further evaluation. CT surgery consulted and the patient was consented for CABG. She was continued on IV heparin on the IVU. On 02/13/2025, patient underwent CABG x 4 with left atrial appendage exclusion with a 45 mm AtriClip. Patient
transferred to the CVICU postoperatively, and Autoc[employer] service is now consulted for additional management/recommendations.
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
Impression:
#Multivessel CAD s/p CABG x 4 with left atrial appendage exclusion with 45 mm AtriClip (POD #0)
#DM type II c/b hyperglycemia (mild)
#Chronic anemia
#Obesity
#GERD
#Hypertension
#Hyperlipidemia
Plan:
Ventilator settings reviewed
FiO2 will be weaned to maintain SpO2 >90-94%
Minute ventilation will be adjusted
Arterial blood gases will be monitored
Spontaneous breathing trial will be attempted with hopeful extubation after anesthesia/sedation wear off
prn nebulized bronchodilators - not currently bronchospastic
Pulmonary artery catheter parameters will be followed
Pressors/antihypertensive/inotropes/diuretics will be provided as needed
Maintain MAP>65
Replete electrolytes with K>4, Mg>2
Monitor chest tube output (mediastinal chest tubes x 2 + bilateral pleural chest tubes)
Monitor hemoglobin
Monitor platelet count and coags
Transfuse blood products as needed to maintain Hb>7g/dL, plt>50k (given post-operative status)
CT surgery managing chest tubes
Monitor blood sugar to maintain euglycemia with goal BG 110-140
Insulin drip per protocol
Aspiration precautions
VAP prevention protocol
DVT prophylaxis
Early nutrition
Early mobilization
Continue CVICU level of care; Autocutter services will continue to follow along.
Critical care statement: A total of 42 minutes of critical care time was provided for this patient today. This includes management of ventilator, spontaneous breathing trial, arterial blood gases, pressors, of unstable vital signs, evaluation of the
patient at bedside, reviewing the patient's pertinent medical records including radiographs, microbiology, laboratory evaluations, and discussion with primary team and critical care nursing.
[2025-02-13 14:11] LABS: Glucose - Point of Care 127 mg/dl (70-99)
[2025-02-13 14:12] LABS: B.E. -1.2 mmol/L; Ionized Calcium 1.29 mMOL/L (1.15-1.33); O2 Saturation % 99.3 % (94-98); PCO2 31 mmHg (32-35); PO2 120 mmHg (83-108); Potassium 3.8 mMOL/L (3.5-5.1); Sodium 140 mMOL/L (136-145); pH 7.46 (7.35-7.45)
[2025-02-13 14:29] LABS: Blood Urea Nitrogen 19 mg/dl (7-17); Estimated Creatinine Clearance 52 ml/min; Glucose 130 mg/dl (70-99); Magnesium 2.6 mg/dl (1.6-2.3)
[2025-02-13 14:36] LABS: INR 1.44
[2025-02-13 14:37] LABS: APTT 35.1 Sec (23.4-35.0)
--- NOTE | 2025-02-13 14:41 | W.PN.CD ---
Addendum entered and electronically signed by Christian Eden MD 02/13/25 16:37:
84 yo female with multivessel CAD, HTN, hyperlipidemia is now s/p CABG today. She is weaning from vent and drips. Exam with RRR, no murmurs, trace edema. Tele: SR 80s. LADARIUS: EF 60%.
CAD/NSTEMI. Now s/p CABG today. Plan will be ASA/Plavix.
Trend BP as she recovers from OR.
Original Note:
Today's Communication / Plan
-
Close post-op monitoring and care with weaning of drips and vent as tolerated per CVICU/CT surgery protocol
Impression / Plan
-
Multivessel CAD:
-diagnosis is threat to life
-now s/p CABG x 4 (EZIO to LAD, GSV to D1, GSV to OM1, GSV to RPDA), ELAA (45mm AtriClip), Dr. Welch 02/13/25
-post-op EKG with IC RBBB and anterior ST/T abnormalities
-intubated/ventilated post-op
-now off Levophed, remains on insulin and Precedex drips, which require intensive monitoring
-CT's, Richards in place
-ASA, statin, BB
HTN:
-monitor post-op
HLD:
-high intensity statin
NIDDM:
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
-post-op on insulin gtt per protocol
GERD:
-PPI
Physical Exam
Vital Signs/Labs
Vital Signs
Temp Pulse Resp BP Pulse Ox
96.5 F L 92 16 118/67 100
02/13/25 14:09 02/13/25 14:00 02/13/25 14:00 02/13/25 06:19 02/13/25 14:09
02/12/25 02/13/25 02/14/25
06:59 06:59 06:59
Actual Weight 91.9 kg 90.2 kg
02/13/25 13:59
PT 18.0 Sec (11.4-14.6) H 02/13/25 13:59
INR 1.44 02/13/25 13:59
APTT 35.1 Sec (23.4-35.0) H 02/13/25 13:59
Magnesium 2.6 mg/dl (1.6-2.3) H 02/13/25 13:59
Triglycerides 248 mg/dl (10-149) H 02/08/25 02:21
LDL Cholesterol, Calc 157 mg/dl 02/08/25 02:21
VLDL Cholesterol, Calc 49 mg/dl (0-30) H 02/08/25 02:21
HDL Cholesterol 43 mg/dl 02/08/25 02:21
Physical Exam
Constitutional: No acute distress
Cardiovascular: Rhythm & rate is regular
Respiratory: Lungs clear to auscul. and Other (intubated/ventilated)
Neuro/Psych: Other (sedated)
Other: Skin (midsternal dressing CDI)
Data Reviewed
-
Date of Service: February 13, 2025
EKG: Tracing Personally Visualized and interpreted (as noted) and Other (tele SR)
X-Ray/CT/US/MRI/NUC/PET: Report Reviewed by me (CXR: postoperative changes of cardiothoracic surgery with expected positioning of support lines and tubes. No pneumothorax.)
Labs: Labs Reviewed by me
[2025-02-13] MEDS: ANCEF 10 IV ×2 (14:42)
[2025-02-13] MEDS: LYRICA PO (14:42)
[2025-02-13] MEDS: NSS 500 IV (14:43)
[2025-02-13] MEDS: TYLENOL PO (14:43)
[2025-02-13] MEDS: NOVOLOG FLEXPEN-LOW RESISTANCE SC ×2 (14:44)
[2025-02-13] MEDS: COREG PO (14:45)
[2025-02-13] MEDS: LOW STRENGTH ASPIRIN PO (14:45)
[2025-02-13] MEDS: ZYLOPRIM PO (14:46)
[2025-02-13] MEDS: MIRALAX PO (14:46)
[2025-02-13] MEDS: SENOKOT PO (14:46)
[2025-02-13 14:50] LABS: Hematocrit 29.9 % (37.0-47.0); Hemoglobin 10.4 g/dL (12.0-16.0); Platelet Count 175 10^3/uL (130-400)
[2025-02-13] MEDS: KCL 50 IV ×2 (14:52→15:59)
[2025-02-13 15:00] LABS: Glucose - Point of Care 121 mg/dl (70-99)
--- NOTE | 2025-02-13 15:00 | PTCARENOTE ---
Pt to CV ~1400. Pt intubated and sedated. Precedex infusing. Pt SR on the tele monitor. Heart tones audible. HR 80s. No pacing wires. BP 90-100s/60-70s. Levo turned off by anesthesia upon arrival to . CVP ~6. Palpable pulses throughout. Pt w/ ETT
#8, 22cm @ right lip. FiO2 40%. POX 100%. See worklist for full vent settings. Lung sounds audible anteriorly. Mediastinal Ctx2 to -20 suction, no airleak noted at this time, and output WNL. R/L pleural CT to -20 suction, no airleak noted at this
time, and output minimal. Abdomen round. Hypoactive BS. Richards catheter in place and draining yellow urine. Right IJ cordis w/ CVP transduced through cordis intact. Left radial a-line intact. All lines leveled, zeroed, and flushed. Sternal incision
w/ Aquacel intact. Surgical bra in place. B/L LE GSV sites intact and wrapped in KYAW wrap. EKG/Xray completed. Labs drawn and sent. See worklist for full nursing assessment and interventions.
[2025-02-13] MEDS: PACERONE PO (15:49)
[2025-02-13] MEDS: NEURONTIN PO (15:49)
[2025-02-13 16:08] LABS: Glucose - Point of Care 117 mg/dl (70-99)
[2025-02-13 16:57] LABS: Glucose - Point of Care 107 mg/dl (70-99)
[2025-02-13] MEDS: OFIRMEV 100 IV (17:20)
--- NOTE | 2025-02-13 17:46 | PTCARENOTE ---
Pt reassessed. Pt remains intubated. Precedex titrated off ~1550. Pt SR on the tele monitor. HR 80s. BP 90-100s/60s. Intermittent low dose levo. Pt currently on CPAP setting. POX 100%. See worklist for full vent settings. CTx4 assessment unchanged.
Richards catheter intact and draining yellow urine. CVP and a-line maintained. All lines leveled, zeroed, and flushed. All surgical sites stable. Bear mikie on patient. [facility] for pain - see MAR. Glycemic protocol followed. 4hr post op labs drawn and
sent. Family updated at the bedside. See worklist for full interventions.
[2025-02-13 17:54] LABS: Glucose - Point of Care 107 mg/dl (70-99)
[2025-02-13 17:57] LABS: Hematocrit 30.3 % (37.0-47.0); Hemoglobin 10.7 g/dL (12.0-16.0); Platelet Count 218 10^3/uL (130-400)
[2025-02-13 18:13] LABS: B.E. -0.5 mmol/L; HCO3 22.8 mmol/L (21-28); Ionized Calcium 1.32 mMOL/L (1.15-1.33); PCO2 32 mmHg (32-35); PO2 172 mmHg (83-108); Potassium 4.9 mMOL/L (3.5-5.1); Sodium 140 mMOL/L (136-145); pH 7.46 (7.35-7.45)
--- NOTE | 2025-02-13 19:02 | PTCARENOTE ---
Pt placed on CPAP by respiratory ~ 1730. ABG drawn and sent. CTPA at the bedside. Pt remains a little sleepy. Pt given about 30 more minutes on CPAP setting. Pt then more awake. Per CTPA good to extubate. Pt extubated to 6 L NC by respiratory. Pt
AAOx3. VSS. POX 100%. Call dey within reach.
[2025-02-13 19:09] LABS: Glucose - Point of Care 89 mg/dl (70-99)
[2025-02-13] MEDS: LR 250 ML IV ×3 (19:31→21:00)
[2025-02-13] MEDS: SENOKOT-S PO (19:47)
[2025-02-13] MEDS: ANCEF 5 IV (19:50)
[2025-02-13] MEDS: LOW STRENGTH ASPIRIN 81 MG PO (20:35)
[2025-02-13 20:43] LABS: Glucose - Point of Care 125 mg/dl (70-99)
--- NOTE | 2025-02-13 21:00 | PTCARENOTE ---
Report received from [facility]. Walking rounds done. Levo gtt at 8 mcg/min. Pt with labile BP at times. SBP 81-90's. CVP 3-4. LR 250 mls IV given at 1900. CVP increased to 5-7. SBP increased to 100's with volume. Pt with continued labile BP at
times. LR 250 mls x 2 given (at 2014 and 2099). Levo titrated briefly to 4 mcg/min. Increased to 6 mcg/min to maintain MAP > 65. Pt in SR, 90's. Rare PVC. For pulse and wound assessments see flowsheets. CTs x 4, all to -20 cm suction. Pt on 6L/NC
post extubation at 1845. Sats 100%. BBS present. Decreased B bases. CDB encouraged. Drowsy yet easily arouses to voice. Speech clear. Generalized weakness yet moves extremities x 4 equally. No facial asymmetry. Belly soft, obese, nontender.
Hypoactive bs x 4. Richards with clear, yellow urine. Hourly UO monitored. Hourly and prn CT outputs monitored. Glycemic protocol maintained. Ongoing plan of care. Eugenia RUSSELL at [facility] to see pt.
[2025-02-13] MEDS: LEVOPHED 250 IV (22:42)
[2025-02-13 23:02] LABS: B.E. -1.5 mmol/L; HCO3 23.7 mmol/L (21-28); Ionized Calcium 1.31 mMOL/L (1.15-1.33); PCO2 41 mmHg (32-35); PO2 202 mmHg (83-108); Potassium 4.2 mMOL/L (3.5-5.1); pH 7.37 (7.35-7.45)
[2025-02-13 23:06] LABS: Mixed Venous O2 Saturation 67.8 %
[2025-02-13] MEDS: TYLENOL 1000 MG PO (23:30)
[2025-02-13] MEDS: NEURONTIN 100 MG PO (23:31)
[2025-02-13] MEDS: PACERONE 200 MG PO (23:49)
[2025-02-14] VITALS (30 sets, daily range): BP systolic 70–137; BP diastolic 46–96; PULSE 90; O2SAT 94; BMI 35.2
[2025-02-14 00:07] LABS: Glucose - Point of Care 99 mg/dl (70-99)
[2025-02-14] MEDS: ALBUMIN 5% 250 IV (01:03)
[2025-02-14 01:28] LABS: Glucose - Point of Care 108 mg/dl (70-99)
[2025-02-14] MEDS: DILAUDID 0.25 MG IV ×2 (01:33→04:56)
--- NOTE | 2025-02-14 01:35 | PTCARENOTE ---
Urine output 20-35 mls/hr. Levo remains 4-6 mcg/min to keep MAP > 65. Albumin 5% 250 mls infused per order. Labs were sent at 2245. MVO2 67.8. PA with all labs. Pt more awake. C/O sternal CP 4/10. Dilaudid 0.25 mg IV given.
[2025-02-14 03:31] LABS: Glucose - Point of Care 94 mg/dl (70-99)
[2025-02-14 04:00] LABS: Hemoglobin 9.3 g/dL (12.0-16.0); Mean Corp Hgb Conc. 34.4 g/dL (33.0-37.0); Mean Corpuscular Hgb 31.4 pg (27.0-31.0); Mean Corpuscular Volume 91.2 fL (81.0-99.0); Mean Platelet Volume 9.4 fL (7.4-10.4); Platelet Count 206 10^3/uL (130-400); Red Blood Cell Count 2.96 10^6/uL (4.20-5.40); Red Cell Dist. Width 14.3 % (11.5-14.5); White Blood Cell Count 18.4 10^3/uL (4.8-10.8)
--- NOTE | 2025-02-14 04:18 | ECGCV ---
DREW Kaur notified of ECG critical value identified by electronic interpretation on ECG completed on 02/14/2025, at 0415.
[2025-02-14 04:22] LABS: Blood Urea Nitrogen 20 mg/dl (7-17); Calcium 9.3 mg/dl (8.4-10.2); Carbon Dioxide 24 mmol/L (22-30); Chloride 114 mmol/L (98-107); Estimated Creatinine Clearance 42 ml/min; Glucose 90 mg/dl (70-99); Magnesium 2.2 mg/dl (1.6-2.3); Potassium 4.1 mmol/L (3.5-5.1); Sodium 144 mmol/L (135-145); eGFR 49.86
[2025-02-14] MEDS: ANCEF 5 IV ×2 (04:37→12:13)
[2025-02-14] MEDS: ZOFRAN 4 MG IV ×2 (05:08→13:57)
[2025-02-14 05:18] LABS: Glucose - Point of Care 85 mg/dl (70-99)
--- NOTE | 2025-02-14 05:35 | PTCARENOTE ---
Labs drawn and sent. EKG done as per last note, seen by PA. CXR done. Dilaudid 0.25 mg IV given at 0456 for 6/10 sternal pain. Zofran 4 mg IV at 0508 for c/o nausea. Levo remains at 4 mcg/min to keep MAP > 65.
[2025-02-14] MEDS: TYLENOL 1000 MG PO ×3 (06:41→21:01)
--- NOTE | 2025-02-14 07:30 | PTCARENOTE ---
Report to [facility] Zarco this am. Walking rounds done. Bed weight done. Pt remains on Levo gtt at 4 mcg/min. Remains in SR. O2 sats on 4L are 100%. IS done with pt: 500-[address] Welch in to see pt this am.
[2025-02-14 07:31] LABS: Glucose - Point of Care 102 mg/dl (70-99)
--- NOTE | 2025-02-14 07:37 | W.PN.ANS.POP ---
Anesthesia Post Operative
- Anesthesia Post Op Note
Vital Signs Stable-See Nursing Note: Yes (Patient on norepinephrine- stable. )
Airway Patent: Yes
Adequate Pain Control: Yes
Change in Mental Status: No
Current Postoperative Nausea & Vomiting: No
Anesthesia Complications: No
General Anesthetic Recall: No
Unplanned Admission: No
Post Op Hydration Adequate: Yes
[2025-02-14] MEDS: ROXICODONE 5 MG PO ×2 (07:39→18:14)
--- NOTE | 2025-02-14 07:43 | W.PN.CT ---
Today's Communication / Plan
-
-pod #1
-no significant issues overnight
-mVO2 is 73.0. drips: insulin, Levo 4
-CT outputputs: 2 meds 170/290, 2 pleur 85/140 in 12/24 hrs
-got 750 LR and 250 Albumin
-wean off Levo as tolerated
-follow UO
-follow Hg
-held BB while on Levo
-current meds (ASA, Plavix, Lipitor, Amio, Protonix, Lyrica, Gabapentin)
-encourage IS, OOB
Assessment / Plan
-
- MVCAD- s/p CABG x 4 (EZIO to LAD, GSV to D1, GSV to OM1, GSV to RPDA); ELAA (45mm AtriClip) by Dr Welch on 02/13/25, pod#1
- Post-LADARIUS: Normal biventricular function, no RWMA, no valvular heart disease
- HTN/HLD
- Class 1 obesity, BMI 34
- GERD
- DM II
- DJD
- Lumbar stenosis
- Graves dz
- Polyneuropathy
- Gout
- L TKR
- Chronic anemia- Hg 9.4-10.3 preop
- Acute on chronic postop blood loss anemia
- Acute postop atelectasis
- Acute postop hypovolemia with subsequent hypervolemia
- Suspected acute postop pericarditis /+rub
Discussed patient care with: Nursing and Care Team
Subjective
-
Date of Service: February 14, 2025
Objective Data
-
PT 18.0 Sec (11.4-14.6) H 02/13/25 13:59
INR 1.44 02/13/25 13:59
APTT 35.1 Sec (23.4-35.0) H 02/13/25 13:59
Vital Signs
Vital Signs
Temp Pulse Resp BP Pulse Ox
98.6 F 100 19 104/62 100
02/14/25 01:00 02/14/25 01:10 02/14/25 01:10 02/14/25 01:00 02/14/25 01:05
CT Intake/Output/Weight
02/13/25 02/13/25 02/14/25
06:59 18:59 06:59
Intake Total 384 / 1444 155.6 / 1447.6 1292.0 / 1447.6
Output Total 1075 / 1480 405 / 1480
Balance 384 / 1444 -919.4 / -32.4 887.0 / -32.4
SaO2: 100
Physical Exam
-
General: Awake and AOx3
Cardiovascular: Regular rate & rhythm, No Murmurs and Rub
Respiratory: Decreased Breath Sounds
Sternum: Stable
Incision: Clean, Dry and Intact
Extremities: No Edema (1+ DPs b/l)
Abdomen: soft, nontender, nondistended, +decreased bowel sounds
Data Reviewed
-
Lab Results: Results Reviewed
Medications: Active Meds Reviewed
Chest X-Ray: Report Reviewed and Image Reviewed
ECG: Report Reviewed and Image Reviewed
--- NOTE | 2025-02-14 07:53 | PN.DE.MGMTRT ---
Insulin Management
- -
02/14/2025 Diabetes Management Consult
Patient transferred from [facility] 02/07 for revascularization s/p non exertional chest pain 02/04 & 02/05. PMH HTN, HLD, diabetes, GERD, MVCAD. Prior to admission was taking glipizide 10 mg BID Ozempic 1 mg weekly. A1C on admission 5.5%. Cr
1.1, eGFR 49.86 today.
POD 1 s/p CABG x 4. Patient is awake alert and oriented able to discuss diabetes care. States she has had diabetes ~ 10 years. Follows with primary care doctor for diabetes care. Has a working glucose monitor at home, usually only tests in AM.
Patient is currently on critical care glycemic protocol insulin infusion requiring .7 to 2 units of insulin per hour. Will continue insulin infusion today and assess for readiness to transition to home regimen with the possible addition of SGLT-2.
Will ask CM to find cost of Farxiga/Jardiance.
Discussed with nurse.
Will follow
Diabetes History
- -
Type of Diabetes: 2
Pre-Admission Diabetes Regimen
02/13/25 02/14/25
13:59 03:20
Creatinine 0.9 1.1 H
Lab Results
Hemoglobin A1c 5.5 % (4.0-5.6) 02/08/25 02:21
Insulin Pump Settings
IP Diabetes Regimen
02/13/25 02/13/25 02/13/25
13:59 14:00 14:59
Glucose 130 H
POC Glucose 127 H 121 H
02/13/25 02/13/25 02/13/25
16:07 16:56 17:53
Glucose
POC Glucose 117 H 107 H 107 H
02/13/25 02/13/25 02/13/25
19:07 20:41 22:33
Glucose
POC Glucose 89 125 H 99
02/14/25 02/14/25 02/14/25
01:27 03:20 03:30
Glucose 90
POC Glucose 108 H 94
02/14/25 02/14/25
05:17 07:30
Glucose
POC Glucose 85 102 H
Meal type: Dinner
Patient Education
--- NOTE | 2025-02-14 08:16 | W.PN.INTV ---
Today's Communication / Plan
Recommendations
Up OOB as tolerated
Maintain MAP >65, weaning down Levophed as tolerated
Goal BG 110�140, wean down insulin drip as per protocol
Encourage incentive spirometer
Continue CVICU level of care; Special Education Preschool Teacher services will continue to follow along
Assessment
-
Assessment: 84-year-old AAF with a past medical history of DM type II, hyperlipidemia, hypertension, GERD and lumbar stenosis who presented with chest pain to [facility] on 02/05/2025. Patient has slightly elevated troponin and was admitted for acute
coronary syndrome. Echo showed preserved LVEF at 60% with no significant valvular disease and mildly dilated left atrium. She underwent coronary angiography which shows significant multivessel CAD. Patient transferred here to [facility]
for further evaluation. CT surgery consulted and the patient was consented for CABG. She was continued on IV heparin on the IVU. On 02/13/2025, patient underwent CABG x 4 with left atrial appendage exclusion with a 45 mm AtriClip. Patient
transferred to the CVICU postoperatively, and Special Education Preschool Teacher service is now consulted for additional management/recommendations.
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
Impression:
#Multivessel CAD s/p CABG x 4 with left atrial appendage exclusion with 45 mm AtriClip (POD #1)
#DM type II c/b hyperglycemia (mild)
#Chronic anemia
#Obesity
#GERD
#Hypertension
#Hyperlipidemia
Plan:
To patient successfully extubated on 02/13/2025, and is now breathing comfortably on room air, saturating 93%
Maintain SpO2 >90-94%
prn nebulized bronchodilators - not currently bronchospastic
Encourage incentive spirometer use - q1hr while awake
Pressors/antihypertensive/inotropes/diuretics will be provided as needed
Maintain MAP>65
Replete electrolytes with K>4, Mg>2
Monitor chest tube output (mediastinal chest tubes x 2 + bilateral pleural chest tubes)
Monitor hemoglobin
Monitor platelet count and coags
Transfuse blood products as needed to maintain Hb>7g/dL, plt>50k (given post-operative status)
CT surgery managing chest tubes
Monitor blood sugar to maintain euglycemia with goal BG 110-140
Insulin drip per protocol
Aspiration precautions
DVT prophylaxis
Early nutrition
Early mobilization
Continue CVICU level of care; Special Education Preschool Teacher services will continue to follow along.
Critical care statement: A total of 38 minutes of critical care time was provided for this patient today. This includes management of ventilator, spontaneous breathing trial, arterial blood gases, pressors, of unstable vital signs, evaluation of the
patient at bedside, reviewing the patient's pertinent medical records including radiographs, microbiology, laboratory evaluations, and discussion with primary team and critical care nursing.
Subjective Dataa
Subjective Data
Date of Service:
Date of Service: February 14, 2025
Chief Complaint: Special Education Preschool Teacher Follow Up
Subjective:
Patient seen and evaluated today at bedside. Resting in bed in no acute distress. Heart rate 85, BP via A-line 111/46, currently on insulin drip at 0.7 units/h and Levophed at 4 mcg/min. Afebrile overnight.. Saturating 93% on room air. Denies
chest pain, BATISTA, nausea, fevers or chills
Review of Systems
General: Other (Negative unless mentioned above)
Objective Data
Data Reviewed
Vital Signs / I&O / Oxygen:
Vital Signs
Temp Pulse Resp BP Pulse Ox
98.7 F 89 22 84/57 95
02/14/25 09:00 02/14/25 09:05 02/14/25 09:05 02/14/25 09:00 02/14/25 09:00
Intake and Output
02/13/25 02/14/25 02/15/25
06:59 06:59 06:59
Intake Total 1444 / 1444 1626.6 / 1662.3 96.9 / 96.9
Output Total 1725 / 1770 115 / 115
Balance 1444 / 1444 -98.4 / -107.7 -18.1 / -18.1
SaO2 [CPAP/PSV] 100
SaO2 [SIMV] 100
SaO2 95
Nasal Cannula flow liters per 2
minute
Physical Exam
General: Respiratory Distress (negative), Comfortable, Chills (negative) and Sweats (negative)
HEENT: Normocephalic and Anicteric
Cardiovascular: S1-S2 and Peripheral Edema (negative)
Respiratory: Clear, Wheeze (negative), Crackles (negative), Rhonchi (negative), Non-Labored Respirations and Chest Tube (Bilateral pleural chest tubes + mediastinal x2)
GI: Soft, Non Distended, Non Tender and Normal Bowel Sounds
Neurology: Awake, Alert and Tremors (negative)
Skin: Warm, Dry, Cyanosis (negative) and Jaundice (negative)
Labs/Micro/Reports
Lab Data
02/14/25 03:20
02/14/25 03:20
Laboratory Results
02/13/25 02/13/25 02/13/25
13:59 18:06 22:46
PT 18.0 H
INR 1.44
APTT 35.1 H
pH 7.46 H 7.46 H 7.37
pCO2 31 L 32 41 H
pO2 120 H 172 H 202 H
HCO3 22.0 22.8 23.7
O2 Delivery Level Not Reportable Not Reportable
[2025-02-14 08:21] LABS: Glucose - Point of Care 124 mg/dl (70-99)
[2025-02-14] MEDS: PACERONE 200 MG PO ×2 (08:26→15:52)
[2025-02-14] MEDS: MAGNESIUM OXIDE 500 MG PO ×2 (08:26→21:01)
[2025-02-14] MEDS: LYRICA 100 MG PO (08:26)
[2025-02-14] MEDS: PROTONIX 40 MG PO (08:26)
[2025-02-14] MEDS: PLAVIX 75 MG PO (08:26)
[2025-02-14] MEDS: LOW STRENGTH ASPIRIN 81 MG PO (08:26)
[2025-02-14] MEDS: SENOKOT-S 1 TABLET PO ×2 (08:26→21:01)
[2025-02-14] MEDS: BACTROBAN 2% OINTMENT 1 APPLIC NASAL ×2 (08:28→21:02)
--- NOTE | 2025-02-14 08:30 | PTCARENOTE ---
Assumed care of patient at 0700. Pt is awake, alert, and oriented. Pt with complaints of pain, PRN Roxicodone administered for relief. Pt remains SR with HR 80's-90's. BP 112/50 MAP 69. CVP 11. Pulse oximetry 96% on 2L nasal cannula. Mediastinal
chest tubes x2 and left/right pleural chest tubes x [address], no sign of air leak or crepitus, drainage serosanguineous. Pt with intermittent complaints of nausea. Richards catheter remains in place with low urine output. Midsternal incision with
post-surgical dressing in place. Left and right leg incisions with KYAW wrap overlay in place. Right IJ cordis with SLIC intact. Remains on Levo and insulin gtt per glycemic protocol.
[2025-02-14 09:19] LABS: Glucose - Point of Care 111 mg/dl (70-99)
--- NOTE | 2025-02-14 09:41 | W.PN.CD ---
Today's Communication / Plan
-
Wean levo as able
Monitor tele
Routine post-op care
Impression / Plan
-
Multivessel CAD:
-diagnosis is threat to life
-now s/p CABG x 4 (EZIO to LAD, GSV to D1, GSV to OM1, GSV to RPDA), ELAA (45mm AtriClip), Dr. Welch 02/13/25
-post-op EKG with IC RBBB and anterior ST/T abnormalities
-extubated
- remains on levophed
-CT's, Richards in place
-ASA, statin, BB
HTN:
-monitor post-op
HLD:
-high intensity statin
NIDDM:
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
-post-op on insulin gtt per protocol
GERD:
-PPI
Physical Exam
Vital Signs/Labs
Vital Signs
Temp Pulse Resp BP Pulse Ox
98.7 F 89 22 84/57 95
02/14/25 09:00 02/14/25 09:05 02/14/25 09:05 02/14/25 09:00 02/14/25 09:00
02/13/25 02/14/25 02/15/25
06:59 06:59 06:59
Actual Weight 198 lb 13.711 oz 204 lb 12.951 oz
02/14/25 03:20
02/14/25 03:20
PT 18.0 Sec (11.4-14.6) H 02/13/25 13:59
INR 1.44 02/13/25 13:59
APTT 35.1 Sec (23.4-35.0) H 02/13/25 13:59
Magnesium 2.2 mg/dl (1.6-2.3) 02/14/25 03:20
Triglycerides 248 mg/dl (10-149) H 02/08/25 02:21
LDL Cholesterol, Calc 157 mg/dl 02/08/25 02:21
VLDL Cholesterol, Calc 49 mg/dl (0-30) H 02/08/25 02:21
HDL Cholesterol 43 mg/dl 02/08/25 02:21
Physical Exam
Constitutional: No acute distress
EENT: Anicteric
Cardiovascular: Rhythm & rate is regular
Respiratory: Respiratory effort normal
GI: Soft
Neuro/Psych: Alert and Oriented
Data Reviewed
-
Date of Service: February 14, 2025
Medical Decision Making: Reviewed Test Results
EKG: Tracing Personally Visualized and interpreted (sr)
Echo: Report Reviewed by me
Labs: Labs Reviewed by me
Critical Care Time (in minutes): 32
[2025-02-14 10:49] LABS: Glucose - Point of Care 103 mg/dl (70-99)
[2025-02-14] MEDS: ProAmatine 5 MG PO (12:13)
[2025-02-14] MEDS: NOVOLIN R INSULIN INFUSION 100 IV (12:14)
[2025-02-14 12:19] LABS: Glucose - Point of Care 104 mg/dl (70-99)
--- NOTE | 2025-02-14 12:28 | PTCARENOTE ---
Pt remains SR with HR 87. BP 105/45 MAP 62. CVP 11. Pulse oximetry 96% on room air. Chest tubes unchanged. Pt remains on Levo gtt at this time. Midodrine administered per order. Remains on insulin gtt per glycemic protocol.
[2025-02-14] MEDS: NSS IV (12:37)
[2025-02-14 13:40] LABS: Glucose - Point of Care 104 mg/dl (70-99)
[2025-02-14] MEDS: LR 250 ML IV (13:42)
[2025-02-14] MEDS: LEVOPHED 250 IV (15:52)
--- NOTE | 2025-02-14 16:00 | PTCARENOTE ---
Pt remains SR with HR 70's-80's. BP 114/42 MAP 62. CVP 8. Pulse oximetry 96% on room air. Received 250mL LR Bolus at 1400. Pt remains on Levo. Urine output remains low, CT MILLIE Ivania made aware.
[2025-02-14 16:06] LABS: Glucose - Point of Care 168 mg/dl (70-99)
[2025-02-14] MEDS: FLEXBUMIN 50 IV (16:21)
[2025-02-14 18:07] LABS: Glucose - Point of Care 123 mg/dl (70-99)
[2025-02-14 18:14] LABS: Ionized Calcium 1.25 mMOL/L (1.15-1.33)
[2025-02-14] MEDS: LIPITOR 80 MG PO (18:14)
[2025-02-14] MEDS: ProAmatine 10 MG PO (18:14)
[2025-02-14 18:30] LABS: Blood Urea Nitrogen 25 mg/dl (7-17); Calcium 9.2 mg/dl (8.4-10.2); Carbon Dioxide 24 mmol/L (22-30); Chloride 112 mmol/L (98-107); Estimated Creatinine Clearance 39 ml/min; Glucose 117 mg/dl (70-99); Sodium 142 mmol/L (135-145); eGFR 44.91
--- NOTE | 2025-02-14 20:00 | PTCARENOTE ---
Assumed care of patient at 1900. AOx3, kwasi, CARRERO. SR on CM, MAPs at goal at this time, CVP high 10's, radial pulses palpable, DP via Doppler, heart tones distant, RRR, no trace edema noted. Lungs dim 96% on RA; CTx4 to -20 cm wall suction, no
air leak, tidaling, or crepitus noted, sanguineous drainage in the chamber. Patient denies nausea at this time, stated she is 'hungry but no appetite,' abdomen obese, SNT, normoactive BS. Oliguric, bowden draining clear yellow urine. All surgical
sites CDI, surgical bra in place. RIJ Cordis with SLIC CDI, PIV x1. On Levo and insulin at this time. See nursing work list for additional intervention details.
[2025-02-14 20:16] LABS: Glucose - Point of Care 156 mg/dl (70-99)
[2025-02-14 22:01] LABS: Glucose - Point of Care 142 mg/dl (70-99)
[2025-02-14] MEDS: PITRESSIN 100 IV (22:05)
[2025-02-14] MEDS: PACERONE PO (22:27)
[2025-02-15] VITALS (57 sets, daily range): BP systolic 84–151; BP diastolic 48–77; PULSE 80–84; O2SAT 80–97; BMI 35.4
--- NOTE | 2025-02-15 | PTCARENOTE ---
Vaso added per CVPA for increasing Levo needs, patient's BP responded well. Vaso at 0.02 maintained, patient sleeping between care, CHG bath and bowden care provided, assessment of needs ongoing.
[2025-02-15 00:17] LABS: Glucose - Point of Care 111 mg/dl (70-99)
[2025-02-15 01:05] LABS: Glucose - Point of Care 95 mg/dl (70-99)
[2025-02-15 02:16] LABS: Glucose - Point of Care 88 mg/dl (70-99)
--- NOTE | 2025-02-15 04:00 | PTCARENOTE ---
No acute changes, Levo reduced per protocol, Vaso continues at 0.02, patient sleeping between care. Assessment of needs ongoing.
[2025-02-15 04:13] LABS: Hematocrit 22.5 % (37.0-47.0); Hemoglobin 7.6 g/dL (12.0-16.0); Mean Corp Hgb Conc. 33.8 g/dL (33.0-37.0); Mean Corpuscular Hgb 31.5 pg (27.0-31.0); Mean Corpuscular Volume 93.4 fL (81.0-99.0); Mean Platelet Volume 9.7 fL (7.4-10.4); Platelet Count 173 10^3/uL (130-400); Red Blood Cell Count 2.41 10^6/uL (4.20-5.40); Red Cell Dist. Width 14.3 % (11.5-14.5); White Blood Cell Count 19.4 10^3/uL (4.8-10.8)
[2025-02-15 04:40] LABS: Blood Urea Nitrogen 25 mg/dl (7-17); Calcium 9.1 mg/dl (8.4-10.2); Carbon Dioxide 25 mmol/L (22-30); Chloride 113 mmol/L (98-107); Estimated Creatinine Clearance 39 ml/min; Glucose 96 mg/dl (70-99); Magnesium 2.1 mg/dl (1.6-2.3); Potassium 3.9 mmol/L (3.5-5.1); Sodium 142 mmol/L (135-145); eGFR 44.91
[2025-02-15 06:00] LABS: Glucose - Point of Care 102 mg/dl (70-99)
[2025-02-15 06:00] LABS: Glucose - Point of Care 108 mg/dl (70-99)
[2025-02-15 06:07] LABS: Glucose - Point of Care 92 mg/dl (70-99)
[2025-02-15] MEDS: TYLENOL 1000 MG PO ×3 (06:10→22:12)
[2025-02-15] MEDS: ROXICODONE 5 MG PO ×4 (06:11→19:50)
--- NOTE | 2025-02-15 07:51 | W.PN.CT ---
Today's Communication / Plan
-
-pod #2
-no significant issues overnight
-drips: Levo 4, Vaso 0.02.
-CT outputs: 2 meds 75/185, 2 pleur 70/130 in 12/24 hrs
-Hg 7.6 today (from 9.3)- will give 1 pRBC followed by iv Lasix
-follow Cr - 1.2 today (1.2 on 02/14 and 1.0 preop)
-current meds (ASA, Plavix, Lipitor, Amio, Protonix, Lyrica, Gabapentin). Holding BB
-continue PT/OT
-encourage IS, OOB
Assessment / Plan
-
- MVCAD- s/p CABG x 4 (EZIO to LAD, GSV to D1, GSV to OM1, GSV to RPDA); ELAA (45mm AtriClip) by Dr Welch on 02/13/25, pod#2
- Post-LADARIUS: Normal biventricular function, no RWMA, no valvular heart disease
- HTN/HLD
- Class 1 obesity, BMI 34
- GERD
- DM II
- DJD
- Lumbar stenosis
- Graves dz
- Polyneuropathy
- Gout
- L TKR
- Chronic anemia- Hg 9.4-10.3 preop
- Acute on chronic postop blood loss anemia
- Acute postop atelectasis
- Acute postop hypovolemia with subsequent hypervolemia
- Suspected acute postop pericarditis /+rub
Discussed patient care with: Nursing and Care Team
Subjective
-
Date of Service: February 15, 2025
Objective Data
-
Lab Results
02/15/25 04:03
02/15/25 04:03
PT 18.0 Sec (11.4-14.6) H 02/13/25 13:59
INR 1.44 02/13/25 13:59
APTT 35.1 Sec (23.4-35.0) H 02/13/25 13:59
Vital Signs
Vital Signs
Temp Pulse Resp BP Pulse Ox
99.5 F 79 11 120/57 100
02/15/25 07:00 02/15/25 07:15 02/15/25 07:15 02/15/25 07:10 02/15/25 07:38
CT Intake/Output/Weight
02/14/25 02/15/25 02/15/25
18:59 06:59 18:59
Intake Total 676.3 / 1212.1 501.3 / 1212.1 34.5 / 34.5
Output Total 385 / 820 405 / 820 30 / 30
Balance 291.3 / 392.1 96.3 / 392.1 4.5 / 4.5
SaO2: 100
Physical Exam
-
General: Awake and AOx3
Cardiovascular: Regular rate & rhythm, No Murmurs and Rub
Respiratory: Decreased Breath Sounds
Sternum: Stable
Incision: Clean, Dry and Intact
Abdomen: soft, nontender, nondistended, +decreased bowel sounds
Extremities: No Edema (1+ DPs b/l)
Data Reviewed
-
Lab Results: Results Reviewed
Medications: Active Meds Reviewed
Chest X-Ray: Report Reviewed and Image Reviewed
ECG: Report Reviewed and Image Reviewed
--- NOTE | 2025-02-15 07:51 | PN.DE.MGMTRT ---
Insulin Management
- -
: Diabetes Management Followup
Patient transferred from [facility] 02/07 for revascularization s/p non exertional chest pain 02/04 & 02/05. PMH HTN, HLD, diabetes, GERD, MVCAD. Prior to admission was taking glipizide 10 mg BID Ozempic 1 mg weekly. A1C on admission 5.5%. Cr
1.1, eGFR 49.86 today.
States she has had diabetes ~ 10 years. Follows with primary care doctor for diabetes care. Has a working glucose monitor at home, usually only tests in AM
Patient is awake alert and oriented, sitting up in chair, offers no complaints, able to discuss diabetes care. POD #2 s/p CABG x 4. Doing well.
Remains on critical care glycemic protocol insulin infusion, glucose range 88 to 115, requiring 0.4 to 2.3 units of insulin per hour.
Will transition off drip today to home regimen and Farxiga 10mg daily, 1st dose now. Per CM cost of Farxiga/Jardiance is $0 co-pay.
Give NPH 15 units then turn drip off 1 hr after administering SQ insulin. Start low dose glipizide 5mg BID (was taking 10mg BID RANGE RIDER)
Discussed with nurse. Will cont to follow
Diabetes History
- -
Type of Diabetes: 2
Pre-Admission Diabetes Regimen
02/14/25 02/15/25
18:06 04:03
Creatinine 1.2 H 1.2 H
Lab Results
Hemoglobin A1c 5.5 % (4.0-5.6) 02/08/25 02:21
Insulin Pump Settings
IP Diabetes Regimen
02/14/25 02/14/25 02/14/25
08:20 09:13 10:47
Glucose
POC Glucose 124 H 111 H 103 H
02/14/25 02/14/25 02/14/25
12:18 13:34 15:59
Glucose
POC Glucose 104 H 104 H 168 H
02/14/25 02/14/25 02/14/25
18:05 18:06 20:16
Glucose 117 H
POC Glucose 123 H 156 H
02/14/25 02/15/25 02/15/25
22:00 00:16 01:04
Glucose
POC Glucose 142 H 111 H 95
02/15/25 02/15/25 02/15/25
02:16 03:05 04:03
Glucose 96
POC Glucose 88 108 H 102 H
02/15/25
06:02
Glucose
POC Glucose 92
Meal type: Breakfast
Patient Education
--- NOTE | 2025-02-15 08:00 | PTCARENOTE ---
Patient received from supervisor finishing department resting in bed, sleepy but arousable and appropriate, LYTTON, states pain controlled at this time. NSR via cm, SaO2 @ 97% on 2lnc. RIJ Cordis/SLIC w/CVP, L radial arterial lines present - leveled, flushed, and
calibrated w/good waveforms returned. Mediastinal chest tubes x 2 to one pleurevac, L and R pleural chest tubes to separate collection chamber, both placed to -20cm suction w/no air leaks noted. All procedural sites stable. Patient and granddaughter
at bedside, both updated to plan of care for the day, in agreement. See work list for full assessment, interventions performed, and intravenous infusion rates and titrations.
[2025-02-15 08:02] LABS: Glucose - Point of Care 115 mg/dl (70-99)
--- NOTE | 2025-02-15 08:20 | W.PN.INTV ---
Today's Communication / Plan
Recommendations
Up OOB as tolerated
Maintain MAP >65
Goal BG 110�140, wean down insulin drip as per protocol
Encourage incentive spirometer
Patient planned to have insulin drip stopped later today. Once insulin drip has been stopped and patient downgraded to CVICU telemetry status, then we will sign off at that time.
Assessment
-
Assessment: 84-year-old AAF with a past medical history of DM type II, hyperlipidemia, hypertension, GERD and lumbar stenosis who presented with chest pain to [facility] on 02/05/2025. Patient has slightly elevated troponin and was admitted for acute
coronary syndrome. Echo showed preserved LVEF at 60% with no significant valvular disease and mildly dilated left atrium. She underwent coronary angiography which shows significant multivessel CAD. Patient transferred here to [facility]
for further evaluation. CT surgery consulted and the patient was consented for CABG. She was continued on IV heparin on the IVU. On 02/13/2025, patient underwent CABG x 4 with left atrial appendage exclusion with a 45 mm AtriClip. Patient
transferred to the CVICU postoperatively, and Circulator service is now consulted for additional management/recommendations.
Chronic conditions ALLIANCE MANAGER: Hypertension, hyperlipidemia, DM type II, GERD, lumbar stenosis, obesity
Impression:
#Multivessel CAD s/p CABG x 4 with left atrial appendage exclusion with 45 mm AtriClip (POD #2)
#DM type II c/b hyperglycemia (mild)
#Chronic anemia
#Obesity
#GERD
#Hypertension
#Hyperlipidemia
Plan:
Patient successfully extubated on 02/13/2025, and is now breathing comfortably on room air, saturating 97-98%
Maintain SpO2 >90-94%
prn nebulized bronchodilators - not currently bronchospastic
Encourage incentive spirometer use - q1hr while awake
Pressors/antihypertensive/inotropes/diuretics will be provided as needed
Maintain MAP>65
Replete electrolytes with K>4, Mg>2
Monitor chest tube output (mediastinal chest tubes x 2 + bilateral pleural chest tubes)
Monitor hemoglobin
Monitor platelet count and coags
Transfuse blood products as needed to maintain Hb>7g/dL, plt>50k (given post-operative status)
CT surgery managing chest tubes
Monitor blood sugar to maintain euglycemia with goal BG 110-140
Insulin drip being weaned off
Aspiration precautions
DVT prophylaxis
Early nutrition
Early mobilization
Patient planned to have insulin drip stopped later today. Once insulin drip has been stopped and patient downgraded to CVICU telemetry status, then we will sign off at that time.
Critical care statement: A total of 41 minutes of critical care time was provided for this patient today. This includes management of ventilator, spontaneous breathing trial, arterial blood gases, pressors, of unstable vital signs, evaluation of the
patient at bedside, reviewing the patient's pertinent medical records including radiographs, microbiology, laboratory evaluations, and discussion with primary team and critical care nursing.
Subjective Dataa
Subjective Data
Date of Service:
Date of Service: February 15, 2025
Chief Complaint: Circulator Follow Up
Subjective:
Patient seen and evaluated today at bedside. Resting in bed no acute distress. On room air breathing comfortably. BP 117/63 and heart rate 87.
Review of Systems
General: Other (Negative unless mentioned above)
Objective Data
Data Reviewed
Vital Signs / I&O / Oxygen:
Vital Signs
Temp Pulse Resp BP Pulse Ox
99.3 F 80 17 127/59 100
02/15/25 08:00 02/15/25 08:00 02/15/25 08:00 02/15/25 08:00 02/15/25 08:00
Intake and Output
02/14/25 02/15/25 02/16/25
06:59 06:59 06:59
Intake Total 1626.6 / 1662.3 1177.6 / 1212.1 70.3 / 70.3
Output Total 1725 / 1770 790 / 820 80 / 80
Balance -98.4 / -107.7 387.6 / 392.1 -9.7 / -9.7
SaO2 [CPAP/PSV] 100
SaO2 [SIMV] 100
SaO2 100
Nasal Cannula flow liters per 2
minute
Physical Exam
General: Respiratory Distress (negative), Comfortable, Chills (negative) and Sweats (negative)
HEENT: Normocephalic and Anicteric
Cardiovascular: S1-S2 and Peripheral Edema (negative)
Respiratory: Clear, Wheeze (negative), Crackles (negative), Rhonchi (negative) and Non-Labored Respirations
GI: Soft, Non Distended, Non Tender and Normal Bowel Sounds
Neurology: Awake, Alert and Tremors (negative)
Skin: Warm, Dry, Cyanosis (negative) and Jaundice (negative)
Labs/Micro/Reports
Lab Data
02/15/25 04:03
02/15/25 04:03
[2025-02-15] MEDS: ProAmatine 10 MG PO ×3 (09:33→17:40)
[2025-02-15] MEDS: PLAVIX 75 MG PO (09:33)
[2025-02-15] MEDS: BACTROBAN 2% OINTMENT 1 APPLIC NASAL ×2 (09:33→19:50)
[2025-02-15] MEDS: LOW STRENGTH ASPIRIN 81 MG PO (09:34)
[2025-02-15] MEDS: MAGNESIUM OXIDE 500 MG PO ×2 (09:34→19:49)
[2025-02-15] MEDS: PROTONIX 40 MG PO (09:34)
[2025-02-15] MEDS: LYRICA 100 MG PO (09:34)
[2025-02-15] MEDS: PACERONE 200 MG PO ×3 (09:34→22:11)
[2025-02-15] MEDS: SENOKOT-S 1 TABLET PO ×2 (09:35→19:49)
[2025-02-15] MEDS: ZYLOPRIM 300 MG PO (09:35)
--- NOTE | 2025-02-15 09:36 | PN.CDI ---
CDI
- -
CDI:
Physician Documentation Request
Admit Date: 02/07/25 21:27
Dear Doctor Yuri/BRADLEY,
Please review the following and provide your response in the progress notes.
Clinical Indicators:
Pt admitted with NSTEMI/ CAD s/p CABG/[place] clip 02/13
CT surgery note 02/15 ,' follow Cr - 1.2 today (1.2 on 02/14 and 1.0 preop)...'
Renal functions below
02/13/25 02/15/25
13:59 04:03
Creatinine 0.9 1.2 H
Clarify which of the following accurately represents the patient's renal status:
CECILE
Change in creatinine only
Other ( please specify)
Criteria for CECILE*
1 Increase in serum creatinine by > or = to 0.3 mg/dL (> or = to 26.5 micromol/L) within 48 hours, OR
2 Increase in serum creatinine to > or = to 1.5 times baseline, which is known or presumed to have occurred within 7 days, OR
3 Urine volume < 0.5 nL/kg/hour for six hours
Use of terms such as suspected, likely, concern for, or probable (associated with a specific diagnosis that is being evaluated, monitored, or treated as if it exists) are acceptable and can be coded in the inpatient setting, when documented at the
time of discharge.
Thank you,
Kristan Giles RN
CDI Specialist
Adel Text
Please use your independent medical judgment in providing your response.
*Source: Kidney Disease: Improving Global Outcomes (KDIGO) 2012
--- NOTE | 2025-02-15 09:48 | W.PN.UPDATE ---
Update Note
Progress Note Update
CDI Inquiry: concern for CECILE due to change in creatinine of 1.2 (02/15/25) from 0.9 (02/13/25) pre-operatively. Will continue to monitor labwork and urine output.
[2025-02-15 10:08] LABS: Glucose - Point of Care 169 mg/dl (70-99)
--- NOTE | 2025-02-15 10:24 | W.PN.CD ---
Today's Communication / Plan
-
- Remains on low-dose Levophed.
- Resume BB when blood pressure allows.
- Continue postoperative care as directed by CT Surgery.
Impression / Plan
-
Multivessel CAD:
-diagnosis is threat to life
-now s/p CABG x 4 (EZIO to LAD, GSV to D1, GSV to OM1, GSV to RPDA), ELAA (45mm AtriClip), Dr. Welhc 02/13/25
-post-op EKG with IC RBBB and anterior ST/T abnormalities
- Remains on low-dose Levophed.
-CT's, Richards in place
- Continue ASA, statin.
- Resume BB when blood pressure allows.
- Continue postoperative care as directed by CT Surgery.
HTN:
- Continue to monitor post-op; currently on Levophed.
HLD:
- Continue high-dose atorvastatin.
NIDDM:
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
-post-op on insulin gtt per protocol
GERD:
-PPI
Physical Exam
Vital Signs/Labs
Vital Signs
Temp Pulse Resp BP Pulse Ox
98.8 F 83 20 122/61 99
02/15/25 10:00 02/15/25 10:00 02/15/25 10:00 02/15/25 10:00 02/15/25 10:00
02/14/25 02/15/25 02/16/25
06:59 06:59 06:59
Actual Weight 92.9 kg 93.6 kg
02/15/25 04:03
02/15/25 04:03
PT 18.0 Sec (11.4-14.6) H 02/13/25 13:59
INR 1.44 02/13/25 13:59
APTT 35.1 Sec (23.4-35.0) H 02/13/25 13:59
Magnesium 2.1 mg/dl (1.6-2.3) 02/15/25 04:03
Triglycerides 248 mg/dl (10-149) H 02/08/25 02:21
LDL Cholesterol, Calc 157 mg/dl 02/08/25 02:21
VLDL Cholesterol, Calc 49 mg/dl (0-30) H 02/08/25 02:21
HDL Cholesterol 43 mg/dl 02/08/25 02:21
Physical Exam
Constitutional: No acute distress and Comfortable
EENT: Anicteric
Cardiovascular: Rhythm & rate is regular, Pedal edema is absent, Systolic murmur absent and S1S2 is normal
Respiratory: Respiratory effort normal and Lungs clear to auscul.
GI: Soft
Neuro/Psych: AO x 3
Other: Skin (Warm, dry, intact)
Data Reviewed
-
Date of Service: February 15, 2025
EKG: Tracing Personally Visualized and interpreted ( telemetry: Sinus rhythm)
Medical Tests (PFT, Pathology etc): Discussed with Nurse
Labs: Labs Reviewed by me
Critical Care Time (in minutes): 31 minutes
--- NOTE | 2025-02-15 11:28 | CM ---
priced stef at [facility], her copay is Zero dollars/month
[2025-02-15 12:02] LABS: Glucose - Point of Care 77 mg/dl (70-99)
--- NOTE | 2025-02-15 12:30 | PTCARENOTE ---
received report from previous RN. Pt OOB in chair resting comfortably. AAOX3. generalized weakness. VENETIE. pt reports mild sternal incisional pain. SR on telemetry heart rate in 80s. radial pulses palpable. dp pulses by doppler. trace lower extremity
edema. pt 99% on 2L, placed on room air, sat 95%. lung sounds diminished in bases. active bowel sounds. tolerating diet, denies nausea. bowden draining clear yellow urine. right IJ cordis/slick infusing KVO. CTx4 (2 mediastinal and R/L pleurals) no
air leaks or crepitus noted. surgical sites CDI. insulin gtt per protocol. to give subq insulin and dc insulin gtt 1 hour after. pt updated on plan of care.
[2025-02-15] MEDS: NOVOLIN N vial 0.15 UNITS SC (13:18)
[2025-02-15 13:19] LABS: Glucose - Point of Care 101 mg/dl (70-99)
[2025-02-15] MEDS: NSS 500 IV (15:04)
[2025-02-15] MEDS: LASIX 40 MG IV (15:05)
--- NOTE | 2025-02-15 16:23 | CM ---
dc plans are for [facility] possibly tuesday depending on bed avail and if cleared medically.
--- NOTE | 2025-02-15 17:00 | PTCARENOTE ---
chest tube dressings changed. pt assisted OOB to chair with 1 assist and rolling walker. 94% on room air. pt reports feeling better. no further changes in assessment noted.
[2025-02-15 17:34] LABS: Glucose - Point of Care 126 mg/dl (70-99)
[2025-02-15] MEDS: NOVOLOG FLEXPEN-LOW RESISTANCE SC (17:40)
[2025-02-15] MEDS: GLUCOTROL 5 MG PO (17:40)
[2025-02-15] MEDS: LIPITOR 80 MG PO (17:40)
--- NOTE | 2025-02-15 20:00 | PTCARENOTE ---
Resumed care of pt laying in bed AAO.x3, QUECHAN. Pt reports sternal pain 01/29, PRN pain medication administered as ordered. HR in the 80's in NSR on the monitor. POX on RA 90%. 2 LO2 NC applied, POX now 97%. Lungs dec/ shallow. Pt instructed to take
deep breaths. [address], 2 mediastinal, rt/lft pleural, dressing intact. Sternal aquacell dressing intact. Right IJ cordis infusing NSS@10ml/hr, dressing intact. + bowel, round obese abd. Richards cath in place draining clear yellow urine. B/L knee
sites with surg glue, open to air, local ecchymosis noted. Trace LE edema. Knee high seq in place. Heels elevated on pillows. Rt forarm int capped. Pt repositoned per comfort. No issues to report at this time. Granddaughter at bedside. Will continue
to monitor.
[2025-02-15 22:17] LABS: Glucose - Point of Care 139 mg/dl (70-99)
[2025-02-16] VITALS (29 sets, daily range): BP systolic 89–137; BP diastolic 45–90; PULSE 79–80; O2SAT 93; BMI 36.1
[2025-02-16 04:30] LABS: Hematocrit 23.7 % (37.0-47.0); Hemoglobin 7.7 g/dL (12.0-16.0); Mean Corp Hgb Conc. 32.5 g/dL (33.0-37.0); Mean Corpuscular Hgb 30.7 pg (27.0-31.0); Mean Corpuscular Volume 94.4 fL (81.0-99.0); Mean Platelet Volume 9.7 fL (7.4-10.4); Platelet Count 169 10^3/uL (130-400); Red Blood Cell Count 2.51 10^6/uL (4.20-5.40); White Blood Cell Count 18.8 10^3/uL (4.8-10.8)
--- NOTE | 2025-02-16 04:53 | PTCARENOTE ---
Pt awake this am. Pt denies any complaints of pain at this time. CHG bath provided. Pt OOB to chair with walker and assist x1. Pt denies any complaints of lightheadedness/ dizziness. Pt reports just feeling weak. Pt positioned in chair per comfort.
Vital signs stable. POX 93% on RA sitting in chair. No other changes in assessment noted at this time. Granddaughter remains at bedside. Will continue to monitor.
[2025-02-16 05:07] LABS: Blood Urea Nitrogen 30 mg/dl (7-17); Calcium 8.6 mg/dl (8.4-10.2); Carbon Dioxide 25 mmol/L (22-30); Chloride 110 mmol/L (98-107); Estimated Creatinine Clearance 34 ml/min; Glucose 53 mg/dl (70-99); Magnesium 2.2 mg/dl (1.6-2.3); Potassium 4.2 mmol/L (3.5-5.1); Sodium 139 mmol/L (135-145); eGFR 37.33
[2025-02-16 05:11] LABS: Glucose - Point of Care 99 mg/dl (70-99)
--- NOTE | 2025-02-16 05:16 | PTCARENOTE ---
Per am labs glucose 53. Labs obtained prior to pt eating a bananna. Bedside glucose obtained 99. pt denies any complaints at this time. Will monitor.
--- NOTE | 2025-02-16 05:16 | W.PN.CT ---
Assessment / Plan
-
- MVCAD- s/p CABG x 4 (EZIO to LAD, GSV to D1, GSV to OM1, GSV to RPDA); ELAA (45mm AtriClip) by Dr Welch on 02/13/25, pod#3
- Post-LADARIUS: Normal biventricular function, no RWMA, no valvular heart disease
- HTN/HLD
- Class 1 obesity, BMI 34
- GERD
- DM II
- DJD
- Lumbar stenosis
- Graves dz
- Polyneuropathy
- Gout
- L TKR
- Chronic anemia- Hg 9.4-10.3 preop
- Acute on chronic postop blood loss anemia
- Acute postop atelectasis
- Acute postop hypovolemia with subsequent hypervolemia
- Suspected acute postop pericarditis /+rub
Discussed patient care with: Nursing and Care Team
Subjective
-
Date of Service: February 16, 2025
Objective Data
-
Lab Results
02/16/25 04:06
02/16/25 04:06
PT 18.0 Sec (11.4-14.6) H 02/13/25 13:59
INR 1.44 02/13/25 13:59
APTT 35.1 Sec (23.4-35.0) H 02/13/25 13:59
Vital Signs
Vital Signs
Temp Pulse Resp BP Pulse Ox
98.5 F 78 18 115/55 94
02/16/25 04:00 02/16/25 04:00 02/16/25 04:00 02/16/25 04:00 02/16/25 04:00
CT Intake/Output/Weight
02/15/25 02/15/25 02/16/25
06:59 18:59 06:59
Intake Total 501.3 / 1212.1 984.7 / 1124.7 140 / 1124.7
Output Total 405 / 820 695 / 890 195 / 890
Balance 96.3 / 392.1 289.7 / 234.7 -55 / 234.7
SaO2: 94
Physical Exam
-
General: Awake and AOx3
Cardiovascular: Regular rate & rhythm, No Murmurs and No Rub
Respiratory: Decreased Breath Sounds
Sternum: Stable
Incision: Clean, Dry and Intact
Extremities: Other (trace edema b/l)
Abdomen: soft, nontender, nondistended, + bowel sounds
Data Reviewed
-
Lab Results: Results Reviewed
Medications: Active Meds Reviewed
Chest X-Ray: Report Reviewed and Image Reviewed
ECG: Report Reviewed and Image Reviewed
--- NOTE | 2025-02-16 05:22 | W.PN.CT ---
Addendum entered and electronically signed by Brent Welch MD 02/16/25 08:23:
I saw and examined the patient.
The PA's note was reviewed and I agree with the note.
Comment:
No major overnight events.� Transfuse additional unit PRBC.� D/C alb.� D/C CTs today.� Continue current meds
Original Note:
Today's Communication / Plan
-
-pod #3
-no significant issues overnight
-no drips
-CT outputs: 2 meds 50/135, 2 pleur 50/85 in 12/24 hrs
-Hg 7.7 today, after getting 1 pRBC on 02/15 for Hg 7.6
-follow Cr - 1.4 today (1.2 on 02/15 and 1.0 preop)
-maintain map >65. on Midodrine
-gave 25% Albumin x3
-current meds (ASA, Plavix, Midodrine 10 tid, Lipitor, Amio, Protonix, Lyrica, Gabapentin). Holding BB for hypotension
-continue PT/OT
-encourage IS, OOB
Assessment / Plan
-
- MVCAD- s/p CABG x 4 (EZIO to LAD, GSV to D1, GSV to OM1, GSV to RPDA); ELAA (45mm AtriClip) by Dr Welch on 02/13/25, pod#3
- Post-LADARIUS: Normal biventricular function, no RWMA, no valvular heart disease
- HTN/HLD
- Class 1 obesity, BMI 34
- GERD
- DM II
- DJD
- Lumbar stenosis
- Graves dz
- Polyneuropathy
- Gout
- L TKR
- Chronic anemia- Hg 9.4-10.3 preop
- Acute on chronic postop blood loss anemia- s/p 3 pRBCs
- Acute postop atelectasis
- Acute postop hypovolemia with subsequent hypervolemia
- Suspected acute postop pericarditis /+rub
- CECILE
Discussed patient care with: Nursing and Care Team
Subjective
-
Date of Service: February 16, 2025
Objective Data
-
Lab Results
02/16/25 04:06
02/16/25 04:06
PT 18.0 Sec (11.4-14.6) H 02/13/25 13:59
INR 1.44 02/13/25 13:59
APTT 35.1 Sec (23.4-35.0) H 02/13/25 13:59
Vital Signs
Vital Signs
Temp Pulse Resp BP Pulse Ox
98.5 F 78 18 115/55 94
02/16/25 04:00 02/16/25 04:00 02/16/25 04:00 02/16/25 04:00 02/16/25 05:18
CT Intake/Output/Weight
02/15/25 02/15/25 02/16/25
06:59 18:59 06:59
Intake Total 501.3 / 1212.1 984.7 / 1124.7 140 / 1124.7
Output Total 405 / 820 695 / 890 195 / 890
Balance 96.3 / 392.1 289.7 / 234.7 -55 / 234.7
SaO2: 94
Physical Exam
-
General: Awake and AOx3
Cardiovascular: Regular rate & rhythm, No Murmurs and Rub
Respiratory: Decreased Breath Sounds
Sternum: Stable
Incision: Clean, Dry and Intact
Abdomen: soft, nontender, nondistended, +decreased bowel sounds
Extremities: trace Edema (1+ DPs b/l)
Data Reviewed
-
Lab Results: Results Reviewed
Medications: Active Meds Reviewed
Chest X-Ray: Report Reviewed and Image Reviewed
ECG: Report Reviewed and Image Reviewed
[2025-02-16] MEDS: TYLENOL 1000 MG PO ×3 (05:27→21:11)
[2025-02-16] MEDS: FLEXBUMIN 50 IV (05:28)
--- NOTE | 2025-02-16 08:11 | W.PN.INTV ---
Today's Communication / Plan
Recommendations
Up OOB as tolerated
Maintain MAP >65
Goal BG 110�140, now off insulin gtt since yesterday
Encourage incentive spirometer q1hr while awake
Insulin drip now off and patient to be downgraded to CVICU-telemetry status today. No additional recommendations at this time. Shipping Checker/Pulmonary service will now sign off. Please reconsult if there are any additional questions/concerns, or if
patient's respiratory status deteriorates.
Assessment
-
Assessment: 84-year-old AAF with a past medical history of DM type II, hyperlipidemia, hypertension, GERD and lumbar stenosis who presented with chest pain to [facility] on 02/05/2025. Patient has slightly elevated troponin and was admitted for acute
coronary syndrome. Echo showed preserved LVEF at 60% with no significant valvular disease and mildly dilated left atrium. She underwent coronary angiography which shows significant multivessel CAD. Patient transferred here to [facility]
for further evaluation. CT surgery consulted and the patient was consented for CABG. She was continued on IV heparin on the IVU. On 02/13/2025, patient underwent CABG x 4 with left atrial appendage exclusion with a 45 mm AtriClip. Patient
transferred to the CVICU postoperatively, and Shipping Checker service is now consulted for additional management/recommendations.
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
Impression:
#Multivessel CAD s/p CABG x 4 with left atrial appendage exclusion with 45 mm AtriClip (POD #3)
#DM type II c/b hyperglycemia (mild) with episode of hypoglycemia
#Chronic anemia
#Obesity
#GERD
#Hypertension
#Hyperlipidemia
Plan:
Patient successfully extubated on 02/13/2025, and is now breathing comfortably on room air, saturating 94-95%
Maintain SpO2 >90-94%
prn nebulized bronchodilators - not currently bronchospastic
Encourage incentive spirometer use - q1hr while awake
Pressors/antihypertensive/inotropes/diuretics will be provided as needed
Maintain MAP>65
Replete electrolytes with K>4, Mg>2
Monitor chest tube output (mediastinal chest tubes x 2 + bilateral pleural chest tubes - being removed this AM)
Monitor hemoglobin
Monitor platelet count and coags
Transfuse blood products as needed to maintain Hb>7g/dL, plt>50k (given post-operative status)
CT surgery managing chest tubes
Monitor blood sugar to maintain euglycemia with goal BG 110-140
Insulin drip weaned off yesterday
Aspiration precautions
DVT prophylaxis
Early nutrition
Early mobilization
Insulin drip now off and patient to be downgraded to CVICU-telemetry status today. No additional recommendations at this time. Shipping Checker/Pulmonary service will now sign off. Thank you for allowing us to be involved in the care of this patient.
Please reconsult if there are any additional questions/concerns, or if patient's respiratory status deteriorates.
Total time spent today was 56 minutes for this encounter. Time includes reviewing laboratory test/imaging results, reviewing pertinent medical records, obtaining and reviewing medical history, performing an appropriate exam, ordering medications,
tests and procedures. Time also includes documentation of this encounter, coordinating patient care and communicating with other healthcare professionals. Total time does not include separately billed tests performed on this date of service.
Subjective Dataa
Subjective Data
Date of Service:
Date of Service: February 16, 2025
Chief Complaint: Shipping Checker Follow Up
Subjective:
Patient was seen and evaluated this morning. Resting in bed no acute distress, breathing comfortably on room air, saturating 95% with BP 108/46 and heart rate 78. Weaned off insulin drip yesterday. Plan to be downgraded to CVICU�telemetry status
later today. She has some chest discomfort when she takes deep breath, otherwise she denies SOB at rest, BATISTA, nausea, fevers or chills.
Review of Systems
General: Other (Negative unless mentioned above)
Objective Data
Data Reviewed
Vital Signs / I&O / Oxygen:
Vital Signs
Temp Pulse Resp BP Pulse Ox
97.4 F 80 18 127/54 96
02/16/25 08:00 02/16/25 09:00 02/16/25 04:00 02/16/25 08:37 02/16/25 09:36
Intake and Output
02/15/25 02/16/25 02/17/25
06:59 06:59 06:59
Intake Total 1177.6 / 1212.1 1154.7 / 1164.7
Output Total 790 / 820 1075 / 1095
Balance 387.6 / 392.1 79.7 / 69.7 -
SaO2 [CPAP/PSV] 100
SaO2 [SIMV] 100
SaO2 96
Nasal Cannula flow liters per 2
minute
Physical Exam
General: Respiratory Distress (negative), Comfortable, Chills (negative) and Sweats (negative)
HEENT: Normocephalic and Anicteric
Cardiovascular: S1-S2 and Peripheral Edema (negative)
Respiratory: Clear, Wheeze (negative), Crackles (negative), Rhonchi (negative), Non-Labored Respirations and Chest Tube (Bilateral pleural chest tubes + mediastinal chest tubes x 2)
GI: Soft, Non Distended, Non Tender and Normal Bowel Sounds
Neurology: Awake, Alert and Tremors (negative)
Skin: Warm, Dry, Cyanosis (negative) and Jaundice (negative)
Labs/Micro/Reports
Lab Data
02/16/25 04:06
02/16/25 04:06
[2025-02-16 08:30] LABS: Glucose - Point of Care 110 mg/dl (70-99)
[2025-02-16] MEDS: SENOKOT-S 1 TABLET PO ×2 (08:36→20:48)
[2025-02-16] MEDS: NOVOLOG FLEXPEN-LOW RESISTANCE SC (08:36)
[2025-02-16] MEDS: LOW STRENGTH ASPIRIN 81 MG PO (08:36)
[2025-02-16] MEDS: BACTROBAN 2% OINTMENT 1 APPLIC NASAL ×2 (08:36→20:48)
[2025-02-16] MEDS: ZYLOPRIM 300 MG PO (08:36)
[2025-02-16] MEDS: GLUCOTROL 5 MG PO ×2 (08:37→16:34)
[2025-02-16] MEDS: ProAmatine 10 MG PO ×3 (08:37→18:26)
[2025-02-16] MEDS: FARXIGA 10 MG PO (08:37)
[2025-02-16] MEDS: MAGNESIUM OXIDE 500 MG PO ×2 (08:37→20:48)
[2025-02-16] MEDS: PACERONE 200 MG PO ×3 (08:37→21:11)
[2025-02-16] MEDS: PLAVIX 75 MG PO (08:37)
[2025-02-16] MEDS: LYRICA 100 MG PO (08:37)
[2025-02-16] MEDS: PROTONIX 40 MG PO (08:37)
--- NOTE | 2025-02-16 09:08 | PTCARENOTE ---
Pt received from child care team lead RN. Pt is Ox3 and appropriate, motivated to recover, currently OOB in the chair. Pain 5/10 in the sternum. NSR on tele, weak DP's. 2 pleural [address]'s, putting out SS drainage. Currently 96% on RA, breath
sounds diminished in the bases. Richards in place draining 20-25mls/hr of clear yellow urine. Obese ABD, good appetite. Low BG this morning prior to eating. Sternal AC in place with small amount of old drainage, BL knee incisions glued, CDI. R IJ
cordis intact. Family at bedside.
--- NOTE | 2025-02-16 10:36 | PTCARENOTE ---
x2 mediastinal and x2 pleural chest tubes removed with assist of another RN. Site cleaned with CHG, tubes removed and sutures tied. Petroleum dressing placed and covered with 4x4's and an ABD.
--- NOTE | 2025-02-16 14:20 | W.PN.CD ---
Today's Communication / Plan
-
continue ASA, Plavix, statin, metoprolol
pRBC
trend tele
Impression / Plan
-
Multivessel CAD:
-now s/p CABG x 4 (EZIO to LAD, GSV to D1, GSV to OM1, GSV to RPDA), ELAA (45mm AtriClip), Dr. Welch 02/13/25
-post-op EKG with IC RBBB and anterior ST/T abnormalities
-CT's, Richards in place
- Continue ASA, Plavix, statin, metoprolol.
Post op anemia
-s/p pRBC today
HTN:
- stable on metoprolol
HLD:
- Continue high-dose atorvastatin.
NIDDM:
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
Physical Exam
Vital Signs/Labs
Vital Signs
Temp Pulse Resp BP Pulse Ox
97.4 F 73 16 107/53 95
02/16/25 12:12 02/16/25 13:12 02/16/25 12:12 02/16/25 13:12 02/16/25 12:12
02/15/25 02/16/25 02/17/25
06:59 06:59 06:59
Actual Weight 93.6 kg 95.2 kg
02/16/25 04:06
02/16/25 04:06
PT 18.0 Sec (11.4-14.6) H 02/13/25 13:59
INR 1.44 02/13/25 13:59
APTT 35.1 Sec (23.4-35.0) H 02/13/25 13:59
Magnesium 2.2 mg/dl (1.6-2.3) 02/16/25 04:06
Triglycerides 248 mg/dl (10-149) H 02/08/25 02:21
LDL Cholesterol, Calc 157 mg/dl 02/08/25 02:21
VLDL Cholesterol, Calc 49 mg/dl (0-30) H 02/08/25 02:21
HDL Cholesterol 43 mg/dl 02/08/25 02:21
Physical Exam
Constitutional: No acute distress and Comfortable
EENT: Moist mucous membranes
Cardiovascular: Rhythm & rate is regular, Pedal edema is absent, JVD pressure is normal and Systolic murmur absent
Respiratory: Respiratory effort normal and Lungs clear to auscul.
Neuro/Psych: AO x 3
Data Reviewed
-
Date of Service: February 16, 2025
EKG: Other (Tele: SR 80S)
Labs: Labs Reviewed by me
[2025-02-16 14:41] LABS: Glucose - Point of Care 151 mg/dl (70-99)
[2025-02-16] MEDS: NOVOLOG FLEXPEN-LOW RESISTANCE 1 UNITS SC ×2 (15:36→18:49)
[2025-02-16] MEDS: NSS IV (16:34)
--- NOTE | 2025-02-16 16:52 | PTCARENOTE ---
Pt reassessed. Walked to bathroom with one person assist, she was able to urinate. Family at bedside. Assessment otherwise unchanged.
[2025-02-16] MEDS: LIPITOR 80 MG PO (18:26)
[2025-02-16 18:35] LABS: Glucose - Point of Care 162 mg/dl (70-99)
--- NOTE | 2025-02-16 21:00 | PTCARENOTE ---
Assumed care of pt from shalom RN. Walking rounds completed. Pt AAOx3. CARRERO. SR on the tele monitor. HR 80s. BP stable. B/L DP pulses weak on palpation. B/L radial pulses palpable. Trace B/L LE edema present. Pt on RA. POX 96%. CT site C/D/I.
Abdomen round. +BSx4. Pt DTV s/p bowden removal ~1200 today. Pt bladder scanned for 355 mL. Pt assisted OOB to the bathroom to attempt to void. Pt unable to void at this time. Pt then assisted back into bed. All surgical sites stable. Right IJ cordis
and PIV intact. Pt states pain is controlled at this time. See worklist for full nursing assessment and interventions. Call dey within reach.
[2025-02-16] MEDS: MUCINEX 600 MG PO (21:40)
[2025-02-17] VITALS (10 sets, daily range): BP systolic 99–132; BP diastolic 47–75; PULSE 75; BMI 36.1
--- NOTE | 2025-02-17 00:50 | PTCARENOTE ---
Pt reasssessed. Pt remains SR on the tele monitor. HR 70s. BP stable. Pt is 91% on RA. Pt bladder scanned for 517 ml urine. Pt assisted OOB to the bathroom to attempt to void. Pt unable to void. Pt repositioned back into bed. PA aware. Pt then
straight cathed for 500 ml urine. Flomax ordered. All surgical sites stable. Call dey within reach.
[2025-02-17] MEDS: FLOMAX 0.4 MG PO (00:54)
--- NOTE | 2025-02-17 03:47 | PTCARENOTE ---
No acute change in assessment. Pt is SR on the tele monitor. HR 70s. BP stable. POX 96% on RA. All surgical sites stable. No c/o pain at this time. Labs drawn and sent. Call dey within reach.
[2025-02-17 04:00] LABS: Hematocrit 26.1 % (37.0-47.0); Hemoglobin 8.6 g/dL (12.0-16.0); Mean Corpuscular Hgb 30.2 pg (27.0-31.0); Mean Corpuscular Volume 91.6 fL (81.0-99.0); Mean Platelet Volume 9.6 fL (7.4-10.4); Platelet Count 183 10^3/uL (130-400); Red Blood Cell Count 2.85 10^6/uL (4.20-5.40); White Blood Cell Count 14.4 10^3/uL (4.8-10.8)
[2025-02-17 04:19] LABS: Blood Urea Nitrogen 32 mg/dl (7-17); Calcium 8.3 mg/dl (8.4-10.2); Carbon Dioxide 25 mmol/L (22-30); Chloride 109 mmol/L (98-107); Estimated Creatinine Clearance 40 ml/min; Glucose 105 mg/dl (70-99); Magnesium 2.4 mg/dl (1.6-2.3); Potassium 3.9 mmol/L (3.5-5.1); Sodium 138 mmol/L (135-145); eGFR 44.91
[2025-02-17] MEDS: TYLENOL 1000 MG PO ×3 (06:30→22:17)
[2025-02-17 08:04] LABS: Glucose - Point of Care 89 mg/dl (70-99)
--- NOTE | 2025-02-17 08:07 | W.PN.CT ---
Addendum entered and electronically signed by Brent Welch MD 02/17/25 09:37:
I saw and examined the patient.
The PA's note was reviewed and I agree with the note.
Comment:
POD#4
Doing well. Hgb 8.6
Urinary retention overnight - straight cath x 1 - follow
Continue diuresis
OOB/IS/ambulate
D/C planning for hopefully tomorrow
Original Note:
Today's Communication / Plan
-
-pod #4
-looks better overall after getting blood. Hg 8.6 today (from 7.7)
-urinary retention after Richards came out 02/16 - straight cath for 500 last night. Gave Flomax x1
-wt is up from 198 lbs preop to 209 lbs today. Consider diuresis
-Cr improving - 1.2 today (1.4 on 02/16 and 1.0 preop)
-maintain map >65. on Midodrine
-current meds (ASA, Plavix, Midodrine 10 tid, Lipitor, Amio, Protonix, Lyrica, Gabapentin). Holding BB for hypotension
-wean off Midodrine, resume BB when able
-follow Mg
-continue PT/OT
-encourage IS, OOB
Assessment / Plan
-
- MVCAD- s/p CABG x 4 (EZIO to LAD, GSV to D1, GSV to OM1, GSV to RPDA); ELAA (45mm AtriClip) by Dr Welch on 02/13/25, pod#4
- Post-LADARIUS: Normal biventricular function, no RWMA, no valvular heart disease
- HTN/HLD
- Class 1 obesity, BMI 34
- GERD
- DM II
- DJD
- Lumbar stenosis
- Graves dz
- Polyneuropathy
- Gout
- L TKR
- Chronic anemia- Hg 9.4-10.3 preop
- Acute on chronic postop blood loss anemia- s/p 4 pRBCs
- Acute postop atelectasis
- Acute postop hypovolemia with subsequent hypervolemia
- Suspected acute postop pericarditis /+rub
- CECILE- improving
Discussed patient care with: Nursing and Care Team
Subjective
-
Date of Service: February 17, 2025
Objective Data
-
Lab Results
02/17/25 03:41
02/17/25 03:41
PT 18.0 Sec (11.4-14.6) H 02/13/25 13:59
INR 1.44 02/13/25 13:59
APTT 35.1 Sec (23.4-35.0) H 02/13/25 13:59
Vital Signs
Vital Signs
Temp Pulse Resp BP Pulse Ox
98.7 F 76 18 127/56 96
02/17/25 03:38 02/17/25 06:45 02/17/25 03:38 02/17/25 06:33 02/17/25 03:38
CT Intake/Output/Weight
02/16/25 02/17/25 02/17/25
18:59 06:59 18:59
Intake Total 1100 / 1190 90 / 1190
Output Total 120 / 620 500 / 620
Balance 980 / 570 -410 / 570
SaO2: 96
Physical Exam
-
General: Awake and AOx3
Cardiovascular: Regular rate & rhythm, No Murmurs and Rub
Respiratory: Decreased Breath Sounds
Sternum: Stable
Incision: Clean, Dry and Intact
Abdomen: soft, nontender, nondistended, +decreased bowel sounds
Extremities: trace Edema (1+ DPs b/l)
Data Reviewed
-
Lab Results: Results Reviewed
Medications: Active Meds Reviewed
Chest X-Ray: Report Reviewed and Image Reviewed
ECG: Report Reviewed and Image Reviewed
[2025-02-17] MEDS: NOVOLOG FLEXPEN-LOW RESISTANCE SC ×2 (08:13→17:27)
[2025-02-17] MEDS: BACTROBAN 2% OINTMENT 1 APPLIC NASAL (08:52)
[2025-02-17] MEDS: PACERONE 200 MG PO ×3 (08:53→22:17)
[2025-02-17] MEDS: ProAmatine 10 MG PO ×3 (08:53→17:27)
[2025-02-17] MEDS: MAGNESIUM OXIDE 500 MG PO ×2 (08:54→20:15)
[2025-02-17] MEDS: MUCINEX 600 MG PO ×2 (08:54→20:15)
[2025-02-17] MEDS: SENOKOT-S 1 TABLET PO ×2 (08:54→20:15)
[2025-02-17] MEDS: LOW STRENGTH ASPIRIN 81 MG PO (08:54)
[2025-02-17] MEDS: ZYLOPRIM 300 MG PO (08:54)
[2025-02-17] MEDS: PROTONIX 40 MG PO (08:54)
[2025-02-17] MEDS: PLAVIX 75 MG PO (08:54)
[2025-02-17] MEDS: GLUCOTROL 5 MG PO ×2 (08:54→16:12)
[2025-02-17] MEDS: FARXIGA 10 MG PO (08:54)
[2025-02-17] MEDS: LYRICA 100 MG PO (08:54)
--- NOTE | 2025-02-17 09:38 | PTCARENOTE ---
Received patient for 7a-7p shift. Patient AAOx3, without complaints. NSR on teletypesetter monitor, VSS. Patient denies pain at this time. Medications administered as ordered. R IJ cordis infusing without complications. Patient due to void. For 2 view CXR
today. Instructed patient to call for assistance prior to ambulation. Patient verbalized understanding. Call dey in reach, will continue to monitor.
[2025-02-17] MEDS: KCL 20 MEQ PO (12:11)
[2025-02-17] MEDS: LASIX 40 MG IV (12:11)
[2025-02-17 12:14] LABS: Glucose - Point of Care 158 mg/dl (70-99)
[2025-02-17] MEDS: NOVOLOG FLEXPEN-LOW RESISTANCE 1 UNITS SC (12:18)
--- NOTE | 2025-02-17 13:01 | W.PN.CD ---
Today's Communication / Plan
-
continue ASA, Plavix, statin, metoprolol.
trend tele
Impression / Plan
-
Multivessel CAD:
-now s/p CABG x 4 (EZIO to LAD, GSV to D1, GSV to OM1, GSV to RPDA), ELAA (45mm AtriClip), Dr. Welch 02/13/25
-post-op EKG with iRBBB and anterior ST/T abnormalities
- Continue ASA, Plavix, statin, metoprolol.
-trend tele
Post op anemia
-s/p pRBC 02/16
HTN:
- stable on metoprolol
HLD:
- Continue high-dose atorvastatin.
NIDDM:
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
Physical Exam
Vital Signs/Labs
Vital Signs
Temp Pulse Resp BP Pulse Ox
98.6 F 73 20 125/56 96
02/17/25 08:15 02/17/25 12:17 02/17/25 08:15 02/17/25 12:17 02/17/25 11:10
02/16/25 02/17/25 02/18/25
06:59 06:59 06:59
Actual Weight 95.2 kg 95.2 kg
02/17/25 03:41
02/17/25 03:41
PT 18.0 Sec (11.4-14.6) H 02/13/25 13:59
INR 1.44 02/13/25 13:59
APTT 35.1 Sec (23.4-35.0) H 02/13/25 13:59
Magnesium 2.4 mg/dl (1.6-2.3) H 02/17/25 03:41
Triglycerides 248 mg/dl (10-149) H 02/08/25 02:21
LDL Cholesterol, Calc 157 mg/dl 02/08/25 02:21
VLDL Cholesterol, Calc 49 mg/dl (0-30) H 02/08/25 02:21
HDL Cholesterol 43 mg/dl 02/08/25 02:21
Physical Exam
Constitutional: No acute distress and Comfortable
EENT: Moist mucous membranes
Cardiovascular: Rhythm & rate is regular, Pedal edema is absent, JVD pressure is normal and Systolic murmur absent
Respiratory: Respiratory effort normal and Lungs clear to auscul.
Neuro/Psych: AO x 3
Data Reviewed
-
Date of Service: February 17, 2025
EKG: Other (Tele: SR 70s)
Labs: Labs Reviewed by me
[2025-02-17] MEDS: NSS 500 IV (16:12)
--- NOTE | 2025-02-17 16:27 | PTCARENOTE ---
Patient reassessed, assessment unchanged from previous. 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 RIJ cordis infusing without complications. Medications administered as ordered. Patient voiding in bathroom without issues. Tolerating po intake. Pt ambulatory in
room with walker and one person assist.
Will continue to monitor.
--- NOTE | 2025-02-17 16:30 | PTCARENOTE ---
VSS, NSR on chemist helper. AAOx3, without complaints, family at bedside. Medications administered as ordered. Patient denies pain at this time. Will continue to monitor.
[2025-02-17 16:55] LABS: Glucose - Point of Care 132 mg/dl (70-99)
[2025-02-17] MEDS: LIPITOR 80 MG PO (17:27)
--- NOTE | 2025-02-17 21:00 | PTCARENOTE ---
Assumed care of pt from dayshift RN. Walking rounds completed. Pt AAOx3. SR on the tele monitor. HR 70s. BP stable. B/L DP pulses weak on palpation. B/L radial pulses palpable. Trace B/L LE edema. Pt 96% on RA. Lung sounds diminished B/L. Deep
breathing and IS encouraged. Abdomen round. +BSx4. Pt voiding. All surgical sites stable. Right IJ cordis and PIV intact. See worklist for full nursing assessment and interventions. Call dey within reach.
[2025-02-18 00:14] VITALS: BP 137/68
--- NOTE | 2025-02-18 00:15 | W.PN.CT ---
Today's Communication / Plan
-
Received 1 unit of RBC �
No urine retention overnight�
Consider DC cordis
Continue Diuresis�
Current meds (ASA, Plavix, Midodrine 10 tid, Lipitor, Amio, Protonix, Lyrica, Gabapentin). Holding BB for hypotension, wean off Midodrine, resume BB when able�
OOB/IS/ambulate�
D/C planning for tomorrow �
Assessment / Plan
-
- MVCAD- s/p CABG x 4 (EZIO to LAD, GSV to D1, GSV to OM1, GSV to RPDA); ELAA (45mm AtriClip) by Dr Welch on 02/13/25, pod#5
- Post-LADARIUS: Normal biventricular function, no RWMA, no valvular heart disease
- HTN/HLD
- Class 1 obesity, BMI 34
- GERD
- DM II
- DJD
- Lumbar stenosis
- Graves dz
- Polyneuropathy
- Gout
- L TKR
- Chronic anemia- Hg 9.4-10.3 preop
- Acute on chronic postop blood loss anemia- s/p 4 pRBCs
- Acute postop atelectasis
- Acute postop hypovolemia with subsequent hypervolemia
- Suspected acute postop pericarditis /+rub
- CECILE- improving
Subjective
-
Date of Service: February 18, 2025
Objective Data
-
Lab Results
02/17/25 03:41
02/17/25 03:41
PT 18.0 Sec (11.4-14.6) H 02/13/25 13:59
INR 1.44 02/13/25 13:59
APTT 35.1 Sec (23.4-35.0) H 02/13/25 13:59
Vital Signs
Vital Signs
Temp Pulse Resp BP Pulse Ox
98.5 F 73 16 132/58 96
02/17/25 20:14 02/17/25 22:30 02/17/25 20:14 02/17/25 20:14 02/17/25 21:00
CT Intake/Output/Weight
02/17/25 02/17/25 02/18/25
06:59 18:59 06:59
Intake Total 90 / 1190 250 / 260 10 / 260
Output Total 500 / 620
Balance -410 / 570 250 / 260 10 / 260
SaO2: 96
Physical Exam
-
General: Awake
Cardiovascular: Regular rate & rhythm and Irregular rate & rhythm
Respiratory: Clear and Equal
Sternum: Stable
Incision: Clean, Dry and Intact
Extremities: Edema +1
--- NOTE | 2025-02-18 00:22 | PTCARENOTE ---
Assessment unchanged. Pt SR on the tele monitor. HR 70s. BP stable. 96% on RA. All surgical sites stable. No c/o pain at this time. Call dey within reach.
[2025-02-18 03:55] VITALS: BP 116/58
[2025-02-18 04:25] LABS: Hematocrit 27.3 % (37.0-47.0); Mean Corpuscular Hgb 30.6 pg (27.0-31.0); Mean Corpuscular Volume 92.9 fL (81.0-99.0); Mean Platelet Volume 9.4 fL (7.4-10.4); Platelet Count 223 10^3/uL (130-400); Red Blood Cell Count 2.94 10^6/uL (4.20-5.40); Red Cell Dist. Width 15.6 % (11.5-14.5); White Blood Cell Count 11.9 10^3/uL (4.8-10.8)
--- NOTE | 2025-02-18 04:46 | PTCARENOTE ---
No change in assessment. Pt remains SR on the tele monitor. HR 70s. BP stable. Pt is 95% on RA. Labs drawn and sent. Call dey within reach.
[2025-02-18 04:50] LABS: Blood Urea Nitrogen 31 mg/dl (7-17); Calcium 8.9 mg/dl (8.4-10.2); Carbon Dioxide 25 mmol/L (22-30); Chloride 108 mmol/L (98-107); Estimated Creatinine Clearance 40 ml/min; Glucose 93 mg/dl (70-99); Potassium 4.1 mmol/L (3.5-5.1); Sodium 139 mmol/L (135-145); eGFR 44.91
[2025-02-18] MEDS: TYLENOL 1000 MG PO ×2 (06:17→13:08)
[2025-02-18 06:18] VITALS: BMI 36.0
[2025-02-18 07:35] VITALS: BP 133/60
[2025-02-18 07:36] LABS: Glucose - Point of Care 85 mg/dl (70-99)
[2025-02-18] MEDS: NOVOLOG FLEXPEN-LOW RESISTANCE SC ×2 (07:36→12:11)
[2025-02-18] MEDS: GLUCOTROL 5 MG PO (07:52)
[2025-02-18] MEDS: PACERONE 200 MG PO (07:52)
[2025-02-18] MEDS: SENOKOT-S 1 TABLET PO (07:52)
[2025-02-18] MEDS: MAGNESIUM OXIDE 500 MG PO (07:52)
[2025-02-18] MEDS: LYRICA 100 MG PO (07:52)
[2025-02-18] MEDS: MUCINEX 600 MG PO (07:52)
[2025-02-18] MEDS: LOW STRENGTH ASPIRIN 81 MG PO (07:53)
[2025-02-18] MEDS: PLAVIX 75 MG PO (07:53)
[2025-02-18] MEDS: PROTONIX 40 MG PO (07:53)
[2025-02-18] MEDS: FARXIGA 10 MG PO (07:53)
[2025-02-18] MEDS: ZYLOPRIM 300 MG PO (07:53)
--- NOTE | 2025-02-18 08:32 | PTCARENOTE ---
Received pt from shift manager RN; Pt AAOx3 and resting comfortably in chair; NSR on monitor and VSS; RIJ Cordis and PIV x1 patent; Lungs diminished; positive bowel sounds; pt voiding yellow urine; palpable pulses throughout; B/L +1 pedal edema noted;
all surgical sites C/D/I; see nursing documentation for further details.
--- NOTE | 2025-02-18 08:46 | PN.DE.MGMTRT ---
Insulin Management
- -
: Diabetes Management Follow up
Patient transferred from [facility] 02/07 for revascularization s/p non exertional chest pain 02/04 & 02/05. PMH HTN, HLD, diabetes, GERD, MVCAD. Prior to admission was taking glipizide 10 mg BID Ozempic 1 mg weekly. A1C on admission 5.5%. Cr
1.1, eGFR 49.86 today.
States she has had diabetes ~ 10 years. Follows with primary care doctor for diabetes care. Has a working glucose monitor at home, usually only tests in AM
Patient is awake alert and oriented, sitting up in chair, offers no complaints, able to discuss diabetes care. POD # 5 s/p CABG x 4. Doing well.
Transitioned off critical care glycemic protocol on 02/15 to oral regimen.
Glucose stable and in range, 02/17 premeal 89 to 158, FBG 85 this AM.
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
Per CM cost of Farxiga/Jardiance is $0 co-pay. Discussed with nurse. Will cont to follow
Diabetes History
- -
Type of Diabetes: 2
Pre-Admission Diabetes Regimen
02/18/25
03:58
Creatinine 1.2 H
Lab Results
Hemoglobin A1c 5.5 % (4.0-5.6) 02/08/25 02:21
Insulin Pump Settings
IP Diabetes Regimen
02/17/25 02/17/25 02/18/25
12:13 16:53 03:58
Glucose 93
POC Glucose 158 H 132 H
02/18/25
07:33
Glucose
POC Glucose 85
Meal type: Breakfast
Meal type: Dinner
Meal type: Lunch
Meal type: Breakfast
Amount consumed: 100%
Amount consumed: 100%
Amount consumed: 90%
Amount consumed: 100%
Patient Education
[2025-02-18] MEDS: ProAmatine 5 MG PO ×2 (09:38→13:08)
--- NOTE | 2025-02-18 10:26 | PTCARENOTE ---
RIJ Cordis removed per CTNP order.
--- NOTE | 2025-02-18 10:31 | CM ---
Reviewed chart. Telephone call to [facility] Ad[facility] to check on bed availability. Sent updated clinical information. Received telephone call from [facility] Admission who confirms ability to accept today. Unit Sec, made wheelchair
van arrangements with Acute Care for 2:30 p.m. The report number is ([phone]) and the fax number is ([phone]). Met with Mrs. Faith and she is agreeable to transfer to [facility] for SNF/Rehab. Medical wonk-up in progress. The
discharge plan is to go to [facility] SNF when medically stable.
--- NOTE | 2025-02-18 11:20 | W.DCSUMMARY ---
Discharge Summary
Discharge Data
Date of Admission: 02/07/25
Date of Discharge: 02/18/25
-
Pending Results: No
Hospital Course
Primary care physician: Vannessa Dickerson
Outpatient sustainable systems analyst: Avelino Putnam
Inpatient consultants: [facility] cardiology, pulmonary refrigerating engineer head, diabetes nurse practitioner
Procedures:
1. CABG, left atrial appendage clip
Primary Diagnosis:
1. NSTEMI/multivessel coronary disease
Secondary Diagnoses:
1. HTN
2. Hyperlipidemia
3. Type 2 diabetes
4. GERD
5. Osteoarthritis
6. Polyneuropathy
7. Lumbar stenosis
8. deconditioning
HPI: 84 yo female with hx HTN, HLD, DM II, non-smoker, GERD, OA, polyneuropathy, lumbar stenosis with surgery last month who presented to [facility] on 02/05/25 with complaints of CP, nausea, vomiting, and diaphoresis. Pt woke up at 5:30 am on 02/04
with left-sided CP radiating to her axilla with associated nausea, vomiting, and diaphoresis. Her symptoms resolved on their own after approx. 45 minutes. She was able to go to her physical therapy session later that morning and had no CP or HASKINS.
The next morning 02/05, she again woke up with the same sxs of CP, nausea, vomiting x2, diaphoresis and present to [facility] ED. She denies having any exertional sxs of CP or SOB prior to these episodes. Her troponin was 37, then 32. Her BNP was 62 and
D-dimer was 0.38. Her Hg was 11.2, plat 406, BUN 24, Creatinine 1.21 (improved to 0.9 on 02/07), glucose 131, TSH 1.79. CXR revealed mild pulmonary vascular congestion with no gutierrez pulmonary edema, no evidence of pneumonia, but an enlarged cardiac
silhouette. Echo revealed EF 60% with grade 1 diastolic dysfunction, mildly dilated LA and no significant valvular disease. She underwent coronary angiography which demonstrated significant proximal and mid junction and mid LAD lesion which were
physiologically significant with IFR of 0.75, as well as, significant ostial and proximal D1 lesion with a D2 that was atretic. There was a significant OM1 lesion, significant proximal and distal RCA lesions and mod-severe PDA lesions and a normal
LVEDP. Pt was transferred to on 02/07/25 for evaluation for CABG.
Hospital course: Patient continued diagnostic workup for CABG and was started on IV heparin. Patient was taken to the operating room on 02/13/2025 and underwent CABG x 4 (EZIO to LAD, GSV to D1, GSV to OM1, GSV to RPDA) and ELAA (45mm AtriClip) by
Dr. Brent Welch. Patient received 2 units of PRBC intraoperatively and returned to CVICU on Levophed, insulin, and Precedex. Patient was volume resuscitated postoperatively with 1 L of lactated Ringer's and started on midodrine. Vasopressin
was added overnight to aid in blood pressure support. On postoperative day #2, patient received 1 PRBC. Vasopressin and Levophed were then weaned off. Arterial line secured and removed. Patient was evaluated by diabetes nurse ivana.
Insulin infusion was discontinued and patient continued on glipizide at decreased dose of 5 mg twice daily. Case management priced Farxiga 10mg daily and patient agreed to co-pay. She will resume her Ozempic on discharge. On postoperative day #3,
chest tubes were removed. Patient received additional PRBC for hemoglobin of 7.7 which improved to 9.0 on day of discharge. Patient was assessed by physical therapy and Occupational Therapy for deconditioning and deemed appropriate for skilled
nursing rehab placement. Case management was involved for placement and secured bed at [facility] and ready for discharge on 02/18/2025. Patient had no postoperative episodes of atrial fibrillation and amiodarone was discontinued on
discharge.
Home medication changes:
Stop ibuprofen, Procardia, losartan
Toprol 50 mg reduced to 25 mg daily
Glipizide 10 mg twice daily reduced to 5 mg twice daily
Discharge Plan
-
Patient Disposition: Halfway/SNF
Discharge Diagnosis/Procedures: CABG, left atrial appendage clip
Condition: Fair
Diet: Low Cholesterol, Low Sodium and Diabetic, Carb Controlled
Activity: No strenuous activity
Driving Restrictions: Not until seen by your Dr
Bathing Restrictions: OK to Shower
Other Services: Cardiac Rehab
Specialty Instructions: Weigh Daily- Call MD for wt gain/loss 3 lbs overnight/5 lbs in 1 week
Activity Restrictions/Additional Instructions:
Please call [facility] to get scheduled. P: [phone]
Referrals:
Owen Gonzalez [Other]
Kaylen Recinos CRNP [Specified Professional Personl, Cardiology] - 03/25/25 10:20 am
Brent Welch MD [Active, Cardiac Surgery] - 03/12/25 2:00 pm
UNKNOWN - PT NOT,INTERVIEWE [Family Provider]
Prescriptions:
New
midodrine 5 mg Tablet
5 mg PO TID@0800,1300,1800 Qty: 0 0RF
Rx Instructions:
hold for SBP>110mmHg
clopidogrel 75 mg Tablet
75 mg PO DAILY Qty: 0 0RF
atorvastatin 80 mg Tablet
80 mg PO QPM Qty: 0 0RF
acetaminophen 325 mg Tablet
650 mg PO Q4HPRN PRN (Reason: mild pain,headache,temp >101F ) Qty: 0 0RF
aspirin 81 mg Tablet,Chewable
81 mg PO DAILY Qty: 0 0RF
glipizide 5 mg Tablet
5 mg PO BID@0800,1700 Qty: 0 0RF
oxycodone 5 mg Tablet
5 mg PO Q4HPRN PRN (Reason: severe pain) Qty: 10 0RF
metoprolol succinate [Toprol XL] 25 mg tablet extended release 24 hr
25 mg PO DAILY Qty: 30 2RF
Rx Instructions:
hold for SBP<100mmHg or HR<50
pantoprazole 40 mg Tablet,Delayed Release (Dr/Ec)
40 mg PO DAILY Qty: 30 2RF
dapagliflozin propanediol 10 mg Tablet
10 mg PO DAILY Qty: 30 2RF
furosemide [Lasix] 20 mg tablet
20 mg PO .daily prn Qty: 5 0RF
Continued
semaglutide 1 mg/dose (2 mg/1.5 mL) Pen Injector
1 mg SC QWEEK
allopurinol 300 mg Tablet
300 mg PO DAILY Qty: 0 0RF
pregabalin 50 mg Capsule
50 mg PO DAILY Qty: 0 0RF
cholecalciferol (vitamin D3) 50 mcg (2,000 unit) Tablet
50 mcg PO DAILY Qty: 0 0RF
Discontinued
ibuprofen 800 mg Tablet
800 mg PO Q8H PRN (Reason: pain)
metoprolol succinate 50 mg Tablet Extended Release 24 Hr
50 mg PO DAILY
glipizide 10 mg Tablet
10 mg PO BID
nifedipine [Procardia XL] 60 mg Tablet Extended Release 24hr
60 mg PO 1XD
losartan [Cozaar] 100 mg Tablet
100 mg PO DAILY
Discharge Orders:
Discharge Patient (As Directed); Ordered 02/18/25
Ordered By: Betsy Erazo
Care Plan Goals
Care Plan Goals:
Problem: Readiness for enhanced knowledge related to diagnosis and treatment plan
Goal: Understand your diagnosis and treatment plan needs, including medications if applicable.
Instructions: Know your diagnosis, underlying causes and treatment plan options, including medications if applicable. Consult with your health care team to learn about your diagnosis and treatment plan, including medications if applicable.
Discharge Date and Time
Print Language: MALAY
--- NOTE | 2025-02-18 11:44 | W.PN.CD ---
Addendum entered and electronically signed by Omkar Pringle MD 02/18/25 14:46:
Patient seen and examined in collaboration with ANALYTICAL CLERK; agree with below.
- 84-year-old female who underwent successful CABG x 4.
- Clinically stable from a cardiac standpoint; telemetry stable.
- Patient will be discharged to home; continue current cardiac medications.
- Outpatient follow-up with primary Outside Property Agent.
Original Note:
Today's Communication / Plan
-
Follow telemetry
Ambulate
Impression / Plan
-
I/P: 84F with HTN, HLD, DM II, non-smoker, GERD, OA, polyneuropathy, lumbar stenosis with surgery last month who presented to [facility] on 02/05/25 with complaints of CP, nausea, vomiting, and diaphoresis.
Outpatient computer systems engineer: Dr. Putnam
Multivessel CAD s/p CABG x 4 (EZIO to LAD, GSV to D1, GSV to OM1, GSV to RPDA), ELAA (45mm AtriClip), Dr. Welch 02/13/25
-post-op EKG with iRBBB and anterior ST/T abnormalities
-Continue ASA, Plavix, statin, metoprolol.
-Trend tele
Post op anemia s/p PRBC x 4
HTN, stable on metoprolol
HLD, continue high-dose atorvastatin, LDL 157 on admission
NIDDM, Hgba1c 5.5%, diabetic ANALYTICAL CLERK following
DATA:
TTE 02/08/2025:
Normal biventricular size and systolic function without regional wall motion
abnormality.
Left ventricular ejection fraction is 60% by Seay's method of discs. Normal
diastolic function.
No significant valvular disease.
Estimated pulmonary artery pressure of 23 mmHg assuming a right atrial pressure
of 3 mmHg.
No prior study available for comparison.
Physical Exam
Vital Signs/Labs
Vital Signs
Temp Pulse Resp BP Pulse Ox
97.8 F 76 20 133/60 97
02/18/25 08:00 02/18/25 08:15 02/18/25 08:00 02/18/25 07:35 02/18/25 08:41
02/17/25 02/18/25 02/19/25
06:59 06:59 06:59
Actual Weight 95.2 kg 95 kg
02/18/25 03:58
02/18/25 03:58
PT 18.0 Sec (11.4-14.6) H 02/13/25 13:59
INR 1.44 02/13/25 13:59
APTT 35.1 Sec (23.4-35.0) H 02/13/25 13:59
Magnesium 2.4 mg/dl (1.6-2.3) H 02/17/25 03:41
Triglycerides 248 mg/dl (10-149) H 02/08/25 02:21
LDL Cholesterol, Calc 157 mg/dl 02/08/25 02:21
VLDL Cholesterol, Calc 49 mg/dl (0-30) H 02/08/25 02:21
HDL Cholesterol 43 mg/dl 02/08/25 02:21
Physical Exam
Constitutional: No acute distress and Comfortable
EENT: Anicteric and Moist mucous membranes
Cardiovascular: Rhythm & rate is regular, Pedal edema is absent and S1S2 is normal
Respiratory: Respiratory effort normal and Lungs clear to auscul.
GI: Soft, Distention absent, Flat, Non tender and Normal bowel sounds
Neuro/Psych: AO x 3
Other: Skin (warm and dry)
Data Reviewed
-
Date of Service: February 18, 2025
[2025-02-18 11:45] VITALS: BP 133/114
[2025-02-18 11:47] VITALS: BP 137/78
[2025-02-18] MEDS: LOPRESSOR 12.5 MG PO (11:50)
[2025-02-18 12:07] LABS: Glucose - Point of Care 125 mg/dl (70-99)
--- NOTE | 2025-02-18 12:12 | PTCARENOTE ---
Assessment unchanged; NSR on monitor and VSS; pt resting comfortably in chair waiting lunch.
--- NOTE | 2025-02-18 14:23 | PTCARENOTE ---
IV and activities aide removed; family at bedside and belongings packed; wheel chair van in room to transport pt to facility; Report given to RN at rehab facility.
== END 2025-02-18 14:40 | DRG 236 ==
LOC: CVICU 21:27
PROVIDERS: Anesthesiology; Clinical Nurse Specialist Acute Care; Hospitalist; Internal Medicine; Internal Medicine Cardiovascular Disease; Nurse Practitioner Primary Care; Physician Assistant Medical; Physician Assistant Surgical; ADMITTING PHYSICIAN Thoracic Surgery (Cardiothoracic Vascular Surgery); CONSULT PHYSICIAN Internal Medicine Critical Care Medicine; OTHER PHYSICIAN Internal Medicine Cardiovascular Disease
PROC: 021209W Bypass Coronary Artery, Three Arteries from Aorta with Autologous Venous Tissue, Open Approach (ICD-10-PCS; 2025-02-13)
PROC: 02100ZC Bypass Coronary Artery, One Artery from Thoracic Artery, Open Approach (ICD-10-PCS; 2025-02-13)
PROC: 5A1221Z Performance of Cardiac Output, Continuous (ICD-10-PCS; 2025-02-13)
PROC: 30233N1 Transfusion of Nonautologous Red Blood Cells into Peripheral Vein, Percutaneous Approach (ICD-10-PCS; 2025-02-13)
PROC: 06BQ4ZZ Excision of Left Saphenous Vein, Percutaneous Endoscopic Approach (ICD-10-PCS; 2025-02-13)
PROC: B24BZZ4 Ultrasonography of Heart with Aorta, Transesophageal (ICD-10-PCS; 2025-02-13)
PROC: 06BP4ZZ Excision of Right Saphenous Vein, Percutaneous Endoscopic Approach (ICD-10-PCS; 2025-02-13)
PROC: 02L70CK Occlusion of Left Atrial Appendage with Extraluminal Device, Open Approach (ICD-10-PCS; 2025-02-13)
DX: I21.4 Non-ST elevation (NSTEMI) myocardial infarction (principal); N17.9 Acute kidney failure, unspecified; D62 Acute posthemorrhagic anemia; J98.11 Atelectasis; I30.8 Other forms of acute pericarditis; E86.1 Hypovolemia; E87.70 Fluid overload, unspecified; R33.8 Other retention of urine; I25.10 Atherosclerotic heart disease of native coronary artery without angina pectoris; I10 Essential (primary) hypertension; E78.00 Pure hypercholesterolemia, unspecified; M48.061 Spinal stenosis, lumbar region without neurogenic claudication; E11.42 Type 2 diabetes mellitus with diabetic polyneuropathy; K21.9 Gastro-esophageal reflux disease without esophagitis; G47.33 Obstructive sleep apnea (adult) (pediatric); M10.9 Gout, unspecified; G89.29 Other chronic pain; I45.10 Unspecified right bundle-branch block; M19.90 Unspecified osteoarthritis, unspecified site; E66.811 Obesity, class 1; Z68.34 Body mass index [BMI] 34.0-34.9, adult; Z79.84 Long term (current) use of oral hypoglycemic drugs; Z79.82 Long term (current) use of aspirin
CPT/HCPCS: 71045; 71046; 71250; 80048; 80053; 80061; 81003; 82248; 82330; 82565; 82728; 82805; 82810; 82947; 82962; 83036; 83540; 83550; 83735; 84132; 84302; 84484; 84520; 84550; 85014; 85018; 85025; 85027; 85045; 85049; 85610; 85730; 86850; 86900; 86901; 86920; 93005; 93306; 93312; 93320; 93325; 93880; 94002; 97110; 97163; 97167; 97530; 97535; P9016; P9045; P9047